=== PATIENT | male | born 1940 | race Caucasian/White ===

== ENCOUNTER 2017-07-18 10:01 | Inpatient (IN) | payer MEDICARE, OTHER ==
[2017-07-18] MEDS ORDERED: NITROGLYCERIN (SL) 0.4 MG TAB (10:33)
[2017-07-18] MEDS: NITROGLYCERIN 2% 1 GM OINT PKT TD (10:38)
[2017-07-18 10:48] LABS: ADD MAN DIFF? NO
[2017-07-18] MEDS: ALBUTEROL 0.5% (NEB) 2.5 MG/0.5 ML AMP INH (10:50)
[2017-07-18 10:51] LABS: WHITE BLOOD COUNT 7.7 10^3/ul (4.8-10.8)
[2017-07-18 10:51] LABS: BASOPHILS % 0.4 % (0.0-2.0); EOSINOPHILS # 0.1 10^3/ul (0.0-0.5); EOSINOPHILS % 0.8 % (0.0-7.0); HEMATOCRIT 34.5 % (42.0-52.0); HEMOGLOBIN 11.2 g/dl (14.0-18.0); LYMPHOCYTES # 1.4 10^3/ul (0.8-2.9); LYMPHOCYTES % 18.4 % (15.0-51.0); MEAN CORPUSCULAR HEMOGLOBIN 33.2 pg (29.0-33.0); MEAN CORPUSCULAR HGB CONC 32.5 g/dl (32.0-37.0); MEAN CORPUSCULAR VOLUME 102.4 fl (82.0-101.0); MEAN PLATELET VOLUME 9.8 fl (7.4-10.4); MONOCYTE # 0.7 10^3/ul (0.3-0.9); MONOCYTES % 8.7 % (0.0-11.0); NEUTROPHIL # 5.5 10^3/ul (1.6-7.5); PLATELET COUNT 265 10^3/UL (140-415); RED BLOOD COUNT 3.37 10^6/ul (4.70-6.10); RED CELL DISTRIBUTION WIDTH 12.9 % (11.5-14.5)
[2017-07-18 11:14] LABS: ANION GAP 26 (8-16); CALCIUM 9.1 mg/dl (8.4-10.2); CARBON DIOXIDE 19 mmol/L (21-31); CHLORIDE 104 mmol/L (97-110); GLUCOSE 148 mg/dl (70-220); SODIUM 142 mmol/L (135-144)
[2017-07-18 11:25] LABS: BLOOD UREA NITROGEN 144 mg/dl (7-20)
[2017-07-18 11:29] LABS: INR 1.18; PROTIME 15.2 Sec (11.9-14.9); PT RATIO 1.2
[2017-07-18 11:30] LABS: PARTIAL THROMBOPLASTIN TIME 38.6 Sec (25.0-35.0); POTASSIUM 6.5 mmol/L (3.5-5.1)
[2017-07-18] MEDS: INSULIN REGULAR, HUMAN 100 UNIT/1 ML 3ML VIAL IVP ×2 (12:33→16:42)
[2017-07-18] MEDS: DEXTROSE 50% 50 ML SYRINGE IV ×4 (12:37→18:33)
[2017-07-18] MEDS: ONDANSETRON 4 MG INJ IV (13:04)
[2017-07-18] MEDS: CA CHLORIDE 10% 10 ML SYRINGE IV (13:04)
[2017-07-18] MEDS: NA BICARBONATE 8.4% 50 ML SYG IV (13:09)
[2017-07-18] MEDS ORDERED: ALBUMIN HUMAN 25% 50 ML IV ×2 (15:00→18:30)
[2017-07-18] MEDS ORDERED: MANNITOL 25% 50 ML IV (15:00)
[2017-07-18] MEDS ORDERED: SODIUM CHLORIDE 0.9% 1L BAG IV (15:00)
[2017-07-18 15:27] LABS: ANION GAP 22 (8-16); CALCIUM 9.5 mg/dl (8.4-10.2); CARBON DIOXIDE 21 mmol/L (21-31); CHLORIDE 104 mmol/L (97-110); CREATININE 9.61 mg/dl (0.61-1.24); GLUCOSE 223 mg/dl (70-220); SODIUM 140 mmol/L (135-144)
[2017-07-18 15:40] LABS: BLOOD UREA NITROGEN 148 mg/dl (7-20)
[2017-07-18] MEDS ORDERED: DEXTROSE 50% 50 ML SYRINGE IV ×2 (16:00→16:30)
[2017-07-18] MEDS ORDERED: VANCOMYCIN IV PER PHARMACY XX (16:00)
[2017-07-18] MEDS: NA POLYST SULFON 15 GM/60 ML BTL PO (16:22)
[2017-07-18 16:30] LABS: ANION GAP 22 (8-16); CALCIUM 9.6 mg/dl (8.4-10.2); CARBON DIOXIDE 18 mmol/L (21-31); CHLORIDE 105 mmol/L (97-110); CREATININE 9.65 mg/dl (0.61-1.24); GLUCOSE 197 mg/dl (70-220); SODIUM 138 mmol/L (135-144)
[2017-07-18] MEDS ORDERED: GLUCOSE GEL 15 GRAM TUBE PO ×2 (16:30)
[2017-07-18] MEDS ORDERED: GLUCOSE GEL 15 GRAM TUBE BUCCAL (16:30)
[2017-07-18] MEDS ORDERED: GLUCAGON 1 MG INJ IM (16:30)
[2017-07-18 16:36] LABS: BLOOD UREA NITROGEN 154 mg/dl (7-20)
[2017-07-18 16:38] LABS: POTASSIUM 7.4 mmol/L (3.5-5.1)
[2017-07-18] MEDS: CALCIUM GLUCONATE 10% 2 GM in DEXTROSE 5% 100 ML IVPB (16:54)
[2017-07-18 17:21] LABS: ALANINE AMINOTRANSFERASE 31 IU/L (13-69); ALBUMIN 3.7 g/dl (3.3-4.9); ALKALINE PHOSPHATASE 63 IU/L (42-121); ASPARTATE AMINO TRANSFERASE 25 IU/L (15-46); MAGNESIUM 3.1 mg/dl (1.7-2.5); PHOSPHORUS 12.7 mg/dl (2.5-4.9); TOTAL PROTEIN 7.2 g/dl (6.1-8.1)
[2017-07-18 17:34] LABS: CK INDEX 7.1; CREATINE KINASE 117 IU/L (23-200)
[2017-07-18 17:35] LABS: CK-MB 8.25 ng/ml (0.0-2.4)
[2017-07-18] MEDS: INSULIN ASPART [NOVOLOG] 3 ML PEN SC ×2 (17:35→21:00)
[2017-07-18 18:24] LABS: AADO2 Arterial 63.6 mmHg (7.0-24.0); Allen Test ACCEPTAB; Arterial Base Excess -10.2 mmol/L (-3.0-3); Arterial Blood Gas Oxygen Sat 95.4 mmHG (95.0-100.0); Arterial COHb 0.5 % (0.0-3.0); Arterial Fraction of Oxyhgb 94.6 % (93.0-99.0); Arterial HCO3 19.9 mmol/L (22.0-26.0); Arterial MetHb 0.3 % (0.0-1.5); Arterial Total Hemglobin 11.9 g/dl (12.0-18.0); Arterial pCO2 64.8 mmhg (35-45); MODE NASAL CANNULA; Site Right Radial
[2017-07-18] MEDS ORDERED: ALBUMIN HUMAN 25% 100 ML IV (18:30)
[2017-07-18] MEDS: VANCOMYCIN 1.5 GM in SOD CHLORIDE 0.9% 250 ML IVPB (18:30)
[2017-07-18 19:54] LABS: HAAIG REFLEX REFLEX FILED
[2017-07-18 20:15] LABS: ANION GAP 24 (8-16); CALCIUM 10.3 mg/dl (8.4-10.2); CARBON DIOXIDE 18 mmol/L (21-31); CHLORIDE 105 mmol/L (97-110); CREATININE 9.78 mg/dl (0.61-1.24); GLUCOSE 51 mg/dl (70-220); MAGNESIUM 3.2 mg/dl (1.7-2.5); SODIUM 140 mmol/L (135-144)
[2017-07-18 20:25] LABS: BLOOD UREA NITROGEN 148 mg/dl (7-20); PHOSPHORUS 12.5 mg/dl (2.5-4.9); POTASSIUM 6.6 mmol/L (3.5-5.1)
[2017-07-18 20:45] LABS: HEPATITIS B SURFACE ANTIGEN NEGATIVE (NEGATIVE)
[2017-07-18] MEDS ORDERED: NON-FORMULARY/PATIENT OWN MED (Icosapent Ethyl (Vascepa) 2 GM) PO (21:00)
[2017-07-18] MEDS ORDERED: LANTHANUM CARBONATE 1,000 MG CHEW PO (21:00)
[2017-07-18] MEDS: DOCUSATE SODIUM 100 MG CAP PO (21:00)
[2017-07-18 21:03] LABS: HEPATITIS B CORE ANTIBODY NEGATIVE (NEGATIVE)
[2017-07-18 21:05] LABS: HEPATITIS C VIRAL ANTIBODY NEGATIVE (NEGATIVE)
[2017-07-18 21:27] LABS: AADO2 Arterial 76.5 mmHg (7.0-24.0); Arterial Base Excess -0.4 mmol/L (-3.0-3); Arterial Blood Gas Oxygen Sat 98.3 mmHG (95.0-100.0); Arterial COHb 0.2 % (0.0-3.0); Arterial Fraction of Oxyhgb 97.8 % (93.0-99.0); Arterial HCO3 25.2 mmol/L (22.0-26.0); Arterial MetHb 0.3 % (0.0-1.5); Arterial Total Hemglobin 11.6 g/dl (12.0-18.0); Arterial pCO2 45.4 mmhg (35-45); Blood Gas IEPAP 20/5; MODE MASK - BIPAP; Site Right Brachial
[2017-07-18] MEDS: TERAZOSIN 1 MG CAP PO (21:52)
[2017-07-18] MEDS: DIPYRIDAMOLE/ASPIRIN (SR) CAP PO (21:52)
[2017-07-18] MEDS: TIMOLOL 0.25% 5 ML OPH BOTH EYES (21:53)
[2017-07-18] MEDS: BRIMONIDINE 0.15% 5 ML OPH BOTH EYES (21:53)
[2017-07-18] MEDS: CEFEPIME 1GM/50 ML (PMX) 50 ML IVPB (21:53)
[2017-07-18] MEDS: LANTHANUM 500 MG CHEW PO (21:54)
[2017-07-18 23:35] LABS: CREATINE KINASE 86 IU/L (23-200)
[2017-07-18 23:48] LABS: CK INDEX 8.4
[2017-07-18 23:49] LABS: CK-MB 7.25 ng/ml (0.0-2.4)
[2017-07-18 23:53] LABS: TROPONIN-I 0.346 ng/ml (0.00-0.12)
[2017-07-19] MEDS: traMADol 50 MG TAB PO (01:16)
[2017-07-19] MEDS: ACCU-CHEK XX (02:00)
[2017-07-19] MEDS: ZOLPIDEM 5 MG TAB PO ×2 (02:06→22:26)
[2017-07-19] MEDS: ONDANSETRON 4 MG INJ IV (03:28)
[2017-07-19 06:09] LABS: ADD MAN DIFF? NO
[2017-07-19 06:36] LABS: INR 1.18; PROTIME 15.2 Sec (11.9-14.9); PT RATIO 1.2
[2017-07-19 06:37] LABS: PARTIAL THROMBOPLASTIN TIME 35.4 Sec (25.0-35.0)
[2017-07-19 06:52] LABS: ANION GAP 22 (8-16); BLOOD UREA NITROGEN 98 mg/dl (7-20); CARBON DIOXIDE 21 mmol/L (21-31); CHLORIDE 101 mmol/L (97-110); CHOL/HDL RATIO 2.2 RATIO; CHOLESTEROL 89 mg/dl (100-200); CREATININE 6.92 mg/dl (0.61-1.24); GLUCOSE 99 mg/dl (70-220); HDL CHOLESTEROL 40 mg/dl (31-75); LDL CHOLESTEROL,CALCULATED 34 mg/dl; MAGNESIUM 2.4 mg/dl (1.7-2.5); PHOSPHORUS 8.5 mg/dl (2.5-4.9); POTASSIUM 5.5 mmol/L (3.5-5.1); SODIUM 138 mmol/L (135-144); TRIGLYCERIDES 76 mg/dl (0-149)
[2017-07-19] MEDS: INSULIN ASPART [NOVOLOG] 3 ML PEN SC ×4 (07:35→20:31)
[2017-07-19 08:01] LABS: BASOPHILS % 0.5 % (0.0-2.0); EOSINOPHILS # 0.1 10^3/ul (0.0-0.5); EOSINOPHILS % 2.1 % (0.0-7.0); HEMATOCRIT 31.7 % (42.0-52.0); HEMOGLOBIN 10.3 g/dl (14.0-18.0); LYMPHOCYTES % 15.6 % (15.0-51.0); MEAN CORPUSCULAR HEMOGLOBIN 32.6 pg (29.0-33.0); MEAN CORPUSCULAR HGB CONC 32.5 g/dl (32.0-37.0); MEAN CORPUSCULAR VOLUME 100.3 fl (82.0-101.0); MEAN PLATELET VOLUME 9.6 fl (7.4-10.4); MONOCYTE # 0.7 10^3/ul (0.3-0.9); MONOCYTES % 11.3 % (0.0-11.0); NEUTROPHIL # 4.3 10^3/ul (1.6-7.5); NEUTROPHILS % 70.3 % (39.0-77.0); PLATELET COUNT 250 10^3/UL (140-415); RED BLOOD COUNT 3.16 10^6/ul (4.70-6.10); RED CELL DISTRIBUTION WIDTH 12.8 % (11.5-14.5)
[2017-07-19 08:01] LABS: WHITE BLOOD COUNT 6.2 10^3/ul (4.8-10.8)
[2017-07-19] MEDS: DOCUSATE SODIUM 100 MG CAP PO ×3 (08:09→20:29)
[2017-07-19] MEDS: BRIMONIDINE 0.15% 5 ML OPH BOTH EYES ×2 (08:50→20:28)
[2017-07-19] MEDS: TIMOLOL 0.25% 5 ML OPH BOTH EYES ×2 (08:50→20:28)
[2017-07-19 08:58] LABS: AADO2 Arterial 9.2 mmHg (7.0-24.0); Arterial Base Excess -2.9 mmol/L (-3.0-3); Arterial Blood Gas Oxygen Sat 97.6 mmHG (95.0-100.0); Arterial COHb 0.7 % (0.0-3.0); Arterial Fraction of Oxyhgb 96.6 % (93.0-99.0); Arterial HCO3 23.9 mmol/L (22.0-26.0); Arterial MetHb 0.3 % (0.0-1.5); Arterial Total Hemglobin 13.4 g/dl (12.0-18.0); Arterial pCO2 49.6 mmhg (35-45); MODE NASAL CANNULA; Site Right Brachial
[2017-07-19] MEDS: LANTHANUM 500 MG CHEW PO ×3 (09:00→20:29)
[2017-07-19] MEDS ORDERED: ALBUMIN HUMAN 25% 50 ML IV ×2 (10:00→17:30)
[2017-07-19] MEDS ORDERED: SODIUM CHLORIDE 0.9% 1L BAG IV ×2 (10:00→17:30)
[2017-07-19] MEDS: ACETAMINOPHEN 325 MG TAB PO (10:37)
[2017-07-19] MEDS: CHOLECALCIFEROL 2,000 UNIT CAP PO (12:27)
[2017-07-19] MEDS: ALLOPURINOL 100 MG TAB PO (12:27)
[2017-07-19] MEDS: FOLIC ACID 1 MG TAB PO (12:27)
[2017-07-19] MEDS: LOSARTAN 50 MG TAB PO (12:28)
[2017-07-19] MEDS: DIPYRIDAMOLE/ASPIRIN (SR) CAP PO ×2 (12:28→20:29)
[2017-07-19] MEDS: CEFEPIME 1GM/50 ML (PMX) 50 ML IVPB (14:17)
[2017-07-19] MEDS: LIDOCAINE 1% (MPF) 5 ML VIAL (17:01)
[2017-07-19] MEDS ORDERED: SOD CHLORIDE 0.9% 1,000 ML IV (17:23)
[2017-07-19] MEDS: INFLUENZA VIRUS VACCINE 0.5 ML SYG IM* (17:30)
[2017-07-19 18:34] LABS: FLD MN% 85.7 %; FLD PMN% 14.3 %; FLD RBC 58000 /uL; FLD WBC 223 /cmm
[2017-07-19 19:49] LABS: FLD CLARITY SLIGHTLY CLOUDY; FLD COLOR RED
[2017-07-19 19:49] LABS: FLD TYPE PLEURAL
[2017-07-19] MEDS: TERAZOSIN 1 MG CAP PO (20:30)
[2017-07-19] MEDS: GUAIFENESIN/CODEINE 5ML CUP PO (23:07)
[2017-07-20] MEDS: ACCU-CHEK XX (01:06)
[2017-07-20 06:04] LABS: ADD MAN DIFF? NO; BASOPHILS % 0.4 % (0.0-2.0); EOSINOPHILS # 0.1 10^3/ul (0.0-0.5); EOSINOPHILS % 0.9 % (0.0-7.0); HEMATOCRIT 29.1 % (42.0-52.0); HEMOGLOBIN 9.7 g/dl (14.0-18.0); LYMPHOCYTES % 14.7 % (15.0-51.0); MEAN CORPUSCULAR HGB CONC 33.3 g/dl (32.0-37.0); MEAN PLATELET VOLUME 9.8 fl (7.4-10.4); MONOCYTE # 0.9 10^3/ul (0.3-0.9); MONOCYTES % 12.9 % (0.0-11.0); NEUTROPHIL # 4.8 10^3/ul (1.6-7.5); NEUTROPHILS % 70.8 % (39.0-77.0); PLATELET COUNT 244 10^3/UL (140-415); RED BLOOD COUNT 2.94 10^6/ul (4.70-6.10); RED CELL DISTRIBUTION WIDTH 12.3 % (11.5-14.5)
[2017-07-20 06:04] LABS: WHITE BLOOD COUNT 6.7 10^3/ul (4.8-10.8)
[2017-07-20 06:32] LABS: VANCOMYCIN,RANDOM 5.3 ug/ml
[2017-07-20 06:49] LABS: ANION GAP 18 (8-16); BLOOD UREA NITROGEN 72 mg/dl (7-20); CALCIUM 7.9 mg/dl (8.4-10.2); CARBON DIOXIDE 29 mmol/L (21-31); CHLORIDE 96 mmol/L (97-110); CREATININE 6.14 mg/dl (0.61-1.24); GLUCOSE 151 mg/dl (70-220); POTASSIUM 4.2 mmol/L (3.5-5.1); SODIUM 139 mmol/L (135-144)
[2017-07-20] MEDS: BRIMONIDINE 0.15% 5 ML OPH BOTH EYES (08:14)
[2017-07-20] MEDS: ALLOPURINOL 100 MG TAB PO (08:14)
[2017-07-20] MEDS: FOLIC ACID 1 MG TAB PO (08:14)
[2017-07-20] MEDS: DIPYRIDAMOLE/ASPIRIN (SR) CAP PO (08:14)
[2017-07-20] MEDS: CEFEPIME 1GM/50 ML (PMX) 50 ML IVPB (08:14)
[2017-07-20] MEDS: CHOLECALCIFEROL 2,000 UNIT CAP PO (08:14)
[2017-07-20] MEDS: DOCUSATE SODIUM 100 MG CAP PO ×2 (08:14→12:24)
[2017-07-20] MEDS: LANTHANUM 500 MG CHEW PO ×2 (08:14→12:24)
[2017-07-20] MEDS: TIMOLOL 0.25% 5 ML OPH BOTH EYES (08:14)
[2017-07-20] MEDS: LOSARTAN 50 MG TAB PO (08:14)
[2017-07-20] MEDS: INSULIN ASPART [NOVOLOG] 3 ML PEN SC ×2 (08:15→12:26)
[2017-07-20] MEDS: VANCOMYCIN 1.5 GM in SOD CHLORIDE 0.9% 250 ML IVPB (14:27)
== END 2017-07-20 15:52 | disposition home or self-care (01) | DRG 280 ==
LOC: MS4 07-19 09:34 → E/R 10:01 → MS4 17:06 → ICU 15:04
PROC: 5A1D70Z Performance of Urinary Filtration, Intermittent, Less than 6 Hours Per Day (ICD-10-PCS; 2017-07-18)
PROC: 0W993ZX Drainage of Right Pleural Cavity, Percutaneous Approach, Diagnostic (ICD-10-PCS; principal; 2017-07-19)
DX: I13.2 Hypertensive heart and chronic kidney disease with heart failure and with stage 5 chronic kidney disease, or end stage renal disease (principal); I50.23 Acute on chronic systolic (congestive) heart failure; I21.A1 Myocardial infarction type 2; J96.01 Acute respiratory failure with hypoxia; J18.9 Pneumonia, unspecified organism; E87.4 Mixed disorder of acid-base balance; J90 Pleural effusion, not elsewhere classified; N18.6 End stage renal disease; E11.22 Type 2 diabetes mellitus with diabetic chronic kidney disease; N25.81 Secondary hyperparathyroidism of renal origin; R00.1 Bradycardia, unspecified; E87.5 Hyperkalemia; E87.70 Fluid overload, unspecified; H40.9 Unspecified glaucoma; I73.9 Peripheral vascular disease, unspecified; M10.9 Gout, unspecified; Z99.2 Dependence on renal dialysis; Z91.15 Patient's noncompliance with renal dialysis; Z79.02 Long term (current) use of antithrombotics/antiplatelets
CPT/HCPCS: 32555; 36415; 36600; 71045; 80048; 80061; 80076; 80202; 82550; 82553; 82803; 82962; 83036; 83735; 84100; 84132; 84484; 85025; 85610; 85730; 86704; 86709; 86803; 87040; 87070; 87081; 87102; 87116; 87340; 89051; 90686; 90935; 93005; 93306; 94644; 94660; 96365; 96366; 96367; 96375; 96376; 99291-25

== ENCOUNTER 2017-11-09 08:51 | Emergency (ER) | payer MEDICARE, OTHER ==
[2017-11-09 09:22] LABS: AADO2 Arterial 55.1 mmHg (7.0-24.0); Arterial Base Excess 2.7 mmol/L (-3.0-3); Arterial Blood Gas Oxygen Sat 87.7 mmHG (95.0-100.0); Arterial COHb 0.9 % (0.0-3.0); Arterial Fraction of Oxyhgb 86.6 % (93.0-99.0); Arterial HCO3 26.1 mmol/L (22.0-26.0); Arterial MetHb 0.3 % (0.0-1.5); Arterial Total Hemglobin 10.5 g/dl (12.0-18.0); MODE ROOM AIR; Site Right Brachial
== END 2017-11-09 10:23 | disposition home or self-care (01) ==
LOC: E/R 08:51
DX: R06.02 Shortness of breath (principal); E11.22 Type 2 diabetes mellitus with diabetic chronic kidney disease; N18.9 Chronic kidney disease, unspecified; I12.9 Hypertensive chronic kidney disease with stage 1 through stage 4 chronic kidney disease, or unspecified chronic kidney disease; Z79.82 Long term (current) use of aspirin; Z99.2 Dependence on renal dialysis
CPT/HCPCS: 36600; 82803; 99283

== ENCOUNTER 2017-11-23 10:03 | Emergency (ER) | payer MEDICARE, OTHER ==
[2017-11-23 11:36] LABS: ADD MAN DIFF? NO
[2017-11-23 11:40] LABS: BASOPHILS % 0.5 % (0.0-2.0); EOSINOPHILS # 0.1 10^3/ul (0.0-0.5); EOSINOPHILS % 1.7 % (0.0-7.0); HEMATOCRIT 31.5 % (42.0-52.0); HEMOGLOBIN 9.6 g/dl (14.0-18.0); LYMPHOCYTES % 12.4 % (15.0-51.0); MEAN CORPUSCULAR HEMOGLOBIN 30.1 pg (29.0-33.0); MEAN CORPUSCULAR HGB CONC 30.5 g/dl (32.0-37.0); MEAN CORPUSCULAR VOLUME 98.7 fl (82.0-101.0); MEAN PLATELET VOLUME 9.6 fl (7.4-10.4); MONOCYTE # 0.7 10^3/ul (0.3-0.9); MONOCYTES % 9.1 % (0.0-11.0); NEUTROPHIL # 6.1 10^3/ul (1.6-7.5); NEUTROPHILS % 75.9 % (39.0-77.0); PLATELET COUNT 251 10^3/UL (140-415); RED BLOOD COUNT 3.19 10^6/ul (4.70-6.10); RED CELL DISTRIBUTION WIDTH 15.7 % (11.5-14.5)
[2017-11-23 11:56] LABS: ALANINE AMINOTRANSFERASE 23 IU/L (13-69); ALBUMIN 3.7 g/dl (3.3-4.9); ALBUMIN/GLOBULIN RATIO 1.02; ALKALINE PHOSPHATASE 77 IU/L (42-121); ANION GAP 13 (8-16); ASPARTATE AMINO TRANSFERASE 14 IU/L (15-46); BILIRUBIN,INDIRECT 0.1 mg/dl (0-1.1); BILIRUBIN,TOTAL 0.1 mg/dl (0.2-1.3); BLOOD UREA NITROGEN 30 mg/dl (7-20); CALCIUM 8.9 mg/dl (8.4-10.2); CARBON DIOXIDE 28 mmol/L (21-31); CHLORIDE 101 mmol/L (97-110); CREATINE KINASE 26 IU/L (23-200); CREATININE 3.72 mg/dl (0.61-1.24); GLUCOSE 151 mg/dl (70-220); POTASSIUM 4.4 mmol/L (3.5-5.1); SODIUM 138 mmol/L (135-144); TOTAL PROTEIN 7.3 g/dl (6.1-8.1)
[2017-11-23 12:09] LABS: CK INDEX 3.7; TROPONIN-I 0.032 ng/ml (0.000-0.120)
[2017-11-23 12:13] LABS: CK-MB 0.97 ng/ml (0.0-2.4)
[2017-11-23 12:14] LABS: INR 1.13; PARTIAL THROMBOPLASTIN TIME 36.3 Sec (25.0-35.0); PROTIME 14.7 Sec (11.9-14.9); PT RATIO 1.1
[2017-11-23 12:17] LABS: D-DIMER 3434.33 ng/ml (<460)
[2017-11-23 12:23] LABS: B-TYPE NATRIURETIC PEPTIDE 41300 PG/ML (0-450)
[2017-11-23] MEDS: IPRATROPIUM (NEB) 0.5 MG/2.5 ML AMP NEB (13:18)
[2017-11-23] MEDS: ALBUTEROL 0.5% (NEB) 2.5 MG/0.5 ML AMP NEB (13:18)
[2017-11-23] MEDS ORDERED: ONDANSETRON 4 MG INJ IV (13:30)
[2017-11-23] MEDS ORDERED: ACETAMINOPHEN 325 MG TAB PO (13:30)
[2017-11-23] MEDS: FUROSEMIDE 40 MG INJ IV (13:51)
== END 2017-11-23 15:30 | disposition left against medical advice (07) ==
LOC: E/R 10:03
DX: J81.0 Acute pulmonary edema (principal); N18.6 End stage renal disease; I12.0 Hypertensive chronic kidney disease with stage 5 chronic kidney disease or end stage renal disease; E11.22 Type 2 diabetes mellitus with diabetic chronic kidney disease; Z79.82 Long term (current) use of aspirin; Z87.891 Personal history of nicotine dependence; Z99.2 Dependence on renal dialysis
CPT/HCPCS: 71045; 80053; 82550; 82553; 83880; 84484; 85025; 85378; 85610; 85730; 93005; 94644; 96374; 99285-25

== ENCOUNTER 2018-09-11 10:25 | Inpatient (IN) | payer MEDICARE, OTHER ==
[2018-09-11 11:19] LABS: ADD MAN DIFF? NO
[2018-09-11 11:22] LABS: BASOPHILS % 0.5 % (0.0-2.0); EOSINOPHILS # 0.1 10^3/ul (0.0-0.5); EOSINOPHILS % 2.1 % (0.0-7.0); HEMATOCRIT 35.7 % (42.0-52.0); HEMOGLOBIN 11.3 g/dl (14.0-18.0); LYMPHOCYTES % 17.3 % (15.0-51.0); MEAN CORPUSCULAR HEMOGLOBIN 32.7 pg (29.0-33.0); MEAN CORPUSCULAR HGB CONC 31.7 g/dl (32.0-37.0); MEAN CORPUSCULAR VOLUME 103.2 fl (82.0-101.0); MEAN PLATELET VOLUME 8.9 fl (7.4-10.4); MONOCYTE # 0.5 10^3/ul (0.3-0.9); MONOCYTES % 8.9 % (0.0-11.0); NEUTROPHILS % 70.8 % (39.0-77.0); PLATELET COUNT 179 10^3/UL (140-415); RED BLOOD COUNT 3.46 10^6/ul (4.70-6.10)
[2018-09-11 11:22] LABS: WHITE BLOOD COUNT 5.6 10^3/ul (4.8-10.8)
[2018-09-11] MEDS: NITROGLYCERIN 2% 1 GM OINT PKT TD (11:37)
[2018-09-11 11:42] LABS: ANION GAP 10 (5-13); BLOOD UREA NITROGEN 51 mg/dl (7-20); CALCIUM 8.8 mg/dl (8.4-10.2); CARBON DIOXIDE 32 mmol/L (21-31); CHLORIDE 93 mmol/L (97-110); CREATININE 6.72 mg/dl (0.61-1.24); GLUCOSE 154 mg/dl (70-220); POTASSIUM 4.9 mmol/L (3.5-5.1); SODIUM 135 mmol/L (135-144)
[2018-09-11 11:44] LABS: INR 1.12; PROTIME 14.5 Sec (11.9-14.9); PT RATIO 1.1
[2018-09-11 11:53] LABS: TROPONIN-I 0.016 ng/ml (0.000-0.120)
[2018-09-11] MEDS ORDERED: ONDANSETRON 4 MG INJ IV ×2 (13:30→14:00)
[2018-09-11] MEDS ORDERED: ACETAMINOPHEN 325 MG TAB PO (13:30)
[2018-09-11] MEDS ORDERED: DOCUSATE SODIUM 100 MG CAP PO (14:00)
[2018-09-11] MEDS ORDERED: NITROGLYCERIN (SL) 0.4 MG TAB SL (14:00)
[2018-09-11] MEDS ORDERED: NACL 0.9% 3 ML SYG IV (14:00)
[2018-09-11] MEDS ORDERED: MAGNESIUM HYDROXIDE 30ML CUP PO (14:00)
[2018-09-11] MEDS ORDERED: GLUCOSE GEL 15 GRAM TUBE BUCCAL (17:00)
[2018-09-11] MEDS ORDERED: DEXTROSE 50% 50 ML SYRINGE IV (17:00)
[2018-09-11] MEDS ORDERED: GLUCOSE GEL 15 GRAM TUBE PO ×2 (17:00)
[2018-09-11] MEDS ORDERED: GLUCAGON 1 MG INJ IM (17:00)
[2018-09-11] MEDS: INSULIN ASPART [NOVOLOG] 3 ML PEN SC ×2 (17:41→20:50)
[2018-09-11] MEDS: DOCUSATE SODIUM 100 MG CAP PO (20:49)
[2018-09-11] MEDS: FISH OIL 1,000 MG CAP PO (20:50)
[2018-09-11] MEDS: ATORVASTATIN 10 MG TAB PO (20:50)
[2018-09-11 20:54] LABS: HEPATITIS B SURFACE ANTIGEN NEGATIVE (NEGATIVE)
[2018-09-11] MEDS: LANTHANUM 500 MG CHEW PO (21:00)
[2018-09-11] MEDS: TERAZOSIN 1 MG CAP PO (21:00)
[2018-09-11] MEDS: DIPYRIDAMOLE/ASPIRIN (SR) CAP PO (21:00)
[2018-09-11] MEDS ORDERED: DIPYRIDAMOLE/ASPIRIN (SR) CAP PO (21:00)
[2018-09-11] MEDS ORDERED: NA BICARBONATE 650 MG TAB PO (21:00)
[2018-09-11] MEDS ORDERED: TIMOLOL 0.25% 5 ML OPH BOTH EYES (21:00)
[2018-09-11] MEDS ORDERED: TERAZOSIN 1 MG CAP PO (21:00)
[2018-09-11] MEDS: TIMOLOL 0.25% 5 ML OPH BOTH EYES (21:00)
[2018-09-11] MEDS ORDERED: LANTHANUM CARBONATE 1,000 MG CHEW PO ×2 (21:00)
[2018-09-11] MEDS ORDERED: FISH OIL 1,000 MG CAP PO (21:00)
[2018-09-11] MEDS: BRIMONIDINE 0.15% 5 ML OPH BOTH EYES (21:00)
[2018-09-11] MEDS ORDERED: BRIMONIDINE 0.15% 5 ML OPH BOTH EYES (21:00)
[2018-09-12] MEDS: ACCU-CHEK XX (02:00)
[2018-09-12 05:41] LABS: ADD MAN DIFF? NO
[2018-09-12 05:50] LABS: WHITE BLOOD COUNT 5.7 10^3/ul (4.8-10.8)
[2018-09-12 05:50] LABS: BASOPHILS % 0.5 % (0.0-2.0); EOSINOPHILS # 0.1 10^3/ul (0.0-0.5); EOSINOPHILS % 2.1 % (0.0-7.0); HEMOGLOBIN 11.8 g/dl (14.0-18.0); LYMPHOCYTES # 0.9 10^3/ul (0.8-2.9); LYMPHOCYTES % 16.2 % (15.0-51.0); MEAN CORPUSCULAR HEMOGLOBIN 32.5 pg (29.0-33.0); MEAN CORPUSCULAR HGB CONC 31.1 g/dl (32.0-37.0); MEAN CORPUSCULAR VOLUME 104.7 fl (82.0-101.0); MEAN PLATELET VOLUME 9.3 fl (7.4-10.4); MONOCYTE # 0.5 10^3/ul (0.3-0.9); MONOCYTES % 9.3 % (0.0-11.0); NEUTROPHIL # 4.1 10^3/ul (1.6-7.5); NEUTROPHILS % 71.7 % (39.0-77.0); PLATELET COUNT 190 10^3/UL (140-415); RED BLOOD COUNT 3.63 10^6/ul (4.70-6.10); RED CELL DISTRIBUTION WIDTH 16.6 % (11.5-14.5)
[2018-09-12 06:51] LABS: ANION GAP 12 (5-13); BLOOD UREA NITROGEN 36 mg/dl (7-20); CALCIUM 9.1 mg/dl (8.4-10.2); CARBON DIOXIDE 31 mmol/L (21-31); CHLORIDE 98 mmol/L (97-110); CREATININE 4.99 mg/dl (0.61-1.24); GLUCOSE 136 mg/dl (70-220); MAGNESIUM 2.3 mg/dl (1.7-2.5); POTASSIUM 4.8 mmol/L (3.5-5.1); SODIUM 141 mmol/L (135-144)
[2018-09-12] MEDS: INSULIN ASPART [NOVOLOG] 3 ML PEN SC ×4 (07:51→20:29)
[2018-09-12] MEDS: DOCUSATE SODIUM 100 MG CAP PO ×3 (08:27→20:33)
[2018-09-12] MEDS: ALLOPURINOL 100 MG TAB PO (08:27)
[2018-09-12] MEDS: FOLIC ACID 1 MG TAB PO (08:27)
[2018-09-12] MEDS: MULTIVIT/CA CARB/B CMPLX/FA TAB PO (08:27)
[2018-09-12] MEDS: FISH OIL 1,000 MG CAP PO ×2 (08:28→20:32)
[2018-09-12] MEDS: LANTHANUM 500 MG CHEW PO ×3 (08:28→20:31)
[2018-09-12] MEDS: CHOLECALCIFEROL 2,000 UNIT CAP PO (08:28)
[2018-09-12] MEDS: BRIMONIDINE 0.15% 5 ML OPH BOTH EYES ×2 (08:28→20:30)
[2018-09-12] MEDS: ASPIRIN (EC) 81 MG TAB PO (08:28)
[2018-09-12] MEDS: DIPYRIDAMOLE/ASPIRIN (SR) CAP PO ×2 (08:29→20:36)
[2018-09-12] MEDS: INSULIN GLARGINE [LANTus] (100 UNITS/ML) SYG SC (08:45)
[2018-09-12] MEDS ORDERED: INSULIN GLARGINE HUM REC ANLOG 8 UNIT SQ (09:00)
[2018-09-12] MEDS: TIMOLOL 0.25% 5 ML OPH BOTH EYES ×2 (09:00→20:31)
[2018-09-12] MEDS ORDERED: CHOLECALCIFEROL 2,000 UNIT CAP PO (09:00)
[2018-09-12] MEDS ORDERED: ALLOPURINOL 100 MG TAB PO (09:00)
[2018-09-12] MEDS ORDERED: FOLIC ACID 1 MG TAB PO (09:00)
[2018-09-12] MEDS: TERAZOSIN 1 MG CAP PO (20:32)
[2018-09-12] MEDS: ATORVASTATIN 10 MG TAB PO (20:33)
[2018-09-13] MEDS: LORAZEPAM 2 MG INJ IV (00:56)
[2018-09-13] MEDS: ACCU-CHEK XX (02:00)
[2018-09-13 05:48] LABS: ADD MAN DIFF? NO
[2018-09-13 05:52] LABS: BASOPHIL # 0.1 10^3/ul (0.0-0.1); BASOPHILS % 0.8 % (0.0-2.0); EOSINOPHILS # 0.2 10^3/ul (0.0-0.5); EOSINOPHILS % 2.9 % (0.0-7.0); HEMATOCRIT 35.2 % (42.0-52.0); HEMOGLOBIN 10.8 g/dl (14.0-18.0); LYMPHOCYTES # 1.6 10^3/ul (0.8-2.9); LYMPHOCYTES % 24.1 % (15.0-51.0); MEAN CORPUSCULAR HEMOGLOBIN 32.4 pg (29.0-33.0); MEAN CORPUSCULAR HGB CONC 30.7 g/dl (32.0-37.0); MEAN CORPUSCULAR VOLUME 105.7 fl (82.0-101.0); MEAN PLATELET VOLUME 9.3 fl (7.4-10.4); MONOCYTE # 0.7 10^3/ul (0.3-0.9); MONOCYTES % 10.3 % (0.0-11.0); NEUTROPHIL # 4.1 10^3/ul (1.6-7.5); NEUTROPHILS % 61.6 % (39.0-77.0); PLATELET COUNT 184 10^3/UL (140-415); RED BLOOD COUNT 3.33 10^6/ul (4.70-6.10); RED CELL DISTRIBUTION WIDTH 16.7 % (11.5-14.5)
[2018-09-13 05:52] LABS: WHITE BLOOD COUNT 6.6 10^3/ul (4.8-10.8)
[2018-09-13 06:29] LABS: ANION GAP 13 (5-13); BLOOD UREA NITROGEN 47 mg/dl (7-20); CALCIUM 8.9 mg/dl (8.4-10.2); CARBON DIOXIDE 27 mmol/L (21-31); CHLORIDE 100 mmol/L (97-110); CREATININE 7.37 mg/dl (0.61-1.24); GLUCOSE 98 mg/dl (70-220); POTASSIUM 5.5 mmol/L (3.5-5.1); SODIUM 140 mmol/L (135-144)
[2018-09-13] MEDS: INSULIN ASPART [NOVOLOG] 3 ML PEN SC ×4 (07:39→22:06)
[2018-09-13] MEDS: TIMOLOL 0.25% 5 ML OPH BOTH EYES ×2 (09:00→22:12)
[2018-09-13] MEDS: DOCUSATE SODIUM 100 MG CAP PO ×3 (13:00→22:06)
[2018-09-13] MEDS: LANTHANUM 500 MG CHEW PO ×3 (13:00→22:07)
[2018-09-13] MEDS: INSULIN GLARGINE [LANTus] (100 UNITS/ML) SYG SC (16:43)
[2018-09-13] MEDS: BRIMONIDINE 0.15% 5 ML OPH BOTH EYES ×2 (16:44→22:12)
[2018-09-13] MEDS: CHOLECALCIFEROL 2,000 UNIT CAP PO (16:45)
[2018-09-13] MEDS: ASPIRIN (EC) 81 MG TAB PO (16:45)
[2018-09-13] MEDS: FISH OIL 1,000 MG CAP PO ×2 (16:45→22:07)
[2018-09-13] MEDS: DIPYRIDAMOLE/ASPIRIN (SR) CAP PO ×2 (16:46→22:07)
[2018-09-13] MEDS: ALLOPURINOL 100 MG TAB PO (16:46)
[2018-09-13] MEDS: FOLIC ACID 1 MG TAB PO (16:46)
[2018-09-13] MEDS: MULTIVIT/CA CARB/B CMPLX/FA TAB PO (16:46)
[2018-09-13] MEDS: ATORVASTATIN 10 MG TAB PO (22:07)
[2018-09-13] MEDS: TERAZOSIN 1 MG CAP PO (22:07)
[2018-09-13] MEDS: ZOLPIDEM 5 MG TAB PO (22:35)
[2018-09-14] MEDS: ACCU-CHEK XX (02:00)
[2018-09-14 06:10] LABS: ADD MAN DIFF? NO
[2018-09-14 06:14] LABS: BASOPHILS % 0.4 % (0.0-2.0); EOSINOPHILS # 0.2 10^3/ul (0.0-0.5); EOSINOPHILS % 3.3 % (0.0-7.0); HEMATOCRIT 36.5 % (42.0-52.0); LYMPHOCYTES # 1.6 10^3/ul (0.8-2.9); LYMPHOCYTES % 21.5 % (15.0-51.0); MEAN CORPUSCULAR HEMOGLOBIN 32.3 pg (29.0-33.0); MEAN CORPUSCULAR HGB CONC 30.1 g/dl (32.0-37.0); MEAN PLATELET VOLUME 9.3 fl (7.4-10.4); MONOCYTE # 0.7 10^3/ul (0.3-0.9); MONOCYTES % 10.1 % (0.0-11.0); NEUTROPHIL # 4.6 10^3/ul (1.6-7.5); NEUTROPHILS % 64.4 % (39.0-77.0); PLATELET COUNT 179 10^3/UL (140-415); RED BLOOD COUNT 3.41 10^6/ul (4.70-6.10); RED CELL DISTRIBUTION WIDTH 16.8 % (11.5-14.5)
[2018-09-14 06:14] LABS: WHITE BLOOD COUNT 7.2 10^3/ul (4.8-10.8)
[2018-09-14 06:45] LABS: ANION GAP 11 (5-13); BLOOD UREA NITROGEN 58 mg/dl (7-20); CALCIUM 8.6 mg/dl (8.4-10.2); CARBON DIOXIDE 28 mmol/L (21-31); CHLORIDE 101 mmol/L (97-110); CREATININE 5.81 mg/dl (0.61-1.24); GLUCOSE 127 mg/dl (70-220); POTASSIUM 5.7 mmol/L (3.5-5.1); SODIUM 140 mmol/L (135-144)
[2018-09-14] MEDS: INSULIN GLARGINE [LANTus] (100 UNITS/ML) SYG SC (07:36)
[2018-09-14] MEDS: INSULIN ASPART [NOVOLOG] 3 ML PEN SC ×4 (07:36→20:54)
[2018-09-14] MEDS: TIMOLOL 0.25% 5 ML OPH BOTH EYES ×2 (09:04→20:53)
[2018-09-14] MEDS: BRIMONIDINE 0.15% 5 ML OPH BOTH EYES ×2 (09:04→20:53)
[2018-09-14] MEDS: LANTHANUM 500 MG CHEW PO ×3 (09:06→20:54)
[2018-09-14] MEDS: FISH OIL 1,000 MG CAP PO ×2 (09:06→20:54)
[2018-09-14] MEDS: DIPYRIDAMOLE/ASPIRIN (SR) CAP PO ×2 (09:06→20:54)
[2018-09-14] MEDS: ASPIRIN (EC) 81 MG TAB PO (09:07)
[2018-09-14] MEDS: DOCUSATE SODIUM 100 MG CAP PO ×3 (09:07→20:54)
[2018-09-14] MEDS: MULTIVIT/CA CARB/B CMPLX/FA TAB PO (09:07)
[2018-09-14] MEDS: ALLOPURINOL 100 MG TAB PO (09:07)
[2018-09-14] MEDS: FOLIC ACID 1 MG TAB PO (09:07)
[2018-09-14] MEDS: CHOLECALCIFEROL 2,000 UNIT CAP PO (09:07)
[2018-09-14] MEDS: LORAZEPAM 2 MG INJ IV (09:21)
[2018-09-14] MEDS: NA POLYST SULFON 15 GM/60 ML BTL PO (11:06)
[2018-09-14] MEDS: TERAZOSIN 1 MG CAP PO (20:54)
[2018-09-14] MEDS: ATORVASTATIN 10 MG TAB PO (20:54)
[2018-09-15] MEDS: ACCU-CHEK XX (02:00)
[2018-09-15 06:22] LABS: ADD MAN DIFF? NO
[2018-09-15 06:28] LABS: BASOPHILS % 0.3 % (0.0-2.0); EOSINOPHILS # 0.1 10^3/ul (0.0-0.5); EOSINOPHILS % 0.7 % (0.0-7.0); HEMATOCRIT 35.1 % (42.0-52.0); HEMOGLOBIN 10.6 g/dl (14.0-18.0); LYMPHOCYTES # 1.7 10^3/ul (0.8-2.9); LYMPHOCYTES % 15.8 % (15.0-51.0); MEAN CORPUSCULAR HEMOGLOBIN 32.3 pg (29.0-33.0); MEAN CORPUSCULAR HGB CONC 30.2 g/dl (32.0-37.0); MEAN PLATELET VOLUME 9.2 fl (7.4-10.4); MONOCYTE # 0.6 10^3/ul (0.3-0.9); NEUTROPHIL # 8.2 10^3/ul (1.6-7.5); NEUTROPHILS % 76.7 % (39.0-77.0); PLATELET COUNT 167 10^3/UL (140-415); RED BLOOD COUNT 3.28 10^6/ul (4.70-6.10); RED CELL DISTRIBUTION WIDTH 16.4 % (11.5-14.5)
[2018-09-15 06:28] LABS: WHITE BLOOD COUNT 10.7 10^3/ul (4.8-10.8)
[2018-09-15 07:17] LABS: ANION GAP 16 (5-13); BLOOD UREA NITROGEN 77 mg/dl (7-20); CALCIUM 8.4 mg/dl (8.4-10.2); CARBON DIOXIDE 25 mmol/L (21-31); CHLORIDE 98 mmol/L (97-110); CREATININE 7.87 mg/dl (0.61-1.24); GLUCOSE 103 mg/dl (70-220); SODIUM 139 mmol/L (135-144)
[2018-09-15] MEDS: INSULIN ASPART [NOVOLOG] 3 ML PEN SC ×4 (07:27→22:11)
[2018-09-15] MEDS: ALBUMIN HUMAN 25% 100 ML IV (08:40)
[2018-09-15] MEDS: INSULIN GLARGINE [LANTus] (100 UNITS/ML) SYG SC (11:20)
[2018-09-15 14:18] LABS: AADO2 Arterial 82.4 mmHg (7.0-24.0); Allen Test ACCEPTAB; Arterial Base Excess -1.2 mmol/L (-3.0-3); Arterial Blood Gas Oxygen Sat 95.8 mmHG (95.0-100.0); Arterial Fraction of Oxyhgb 94.7 % (93.0-99.0); Arterial HCO3 29.8 mmol/L (22.0-26.0); Arterial MetHb 0.1 % (0.0-1.5); Arterial pCO2 88.4 mmhg (35-45); MODE NASAL CANNULA; Site Right Radial
[2018-09-15 14:24] LABS: ADD MAN DIFF? NO
[2018-09-15 14:26] LABS: WHITE BLOOD COUNT 9.9 10^3/ul (4.8-10.8)
[2018-09-15 14:26] LABS: BASOPHILS % 0.4 % (0.0-2.0); EOSINOPHILS # 0.2 10^3/ul (0.0-0.5); EOSINOPHILS % 1.5 % (0.0-7.0); HEMOGLOBIN 11.3 g/dl (14.0-18.0); LYMPHOCYTES # 1.2 10^3/ul (0.8-2.9); LYMPHOCYTES % 12.2 % (15.0-51.0); MEAN CORPUSCULAR HEMOGLOBIN 32.9 pg (29.0-33.0); MEAN CORPUSCULAR HGB CONC 30.5 g/dl (32.0-37.0); MEAN CORPUSCULAR VOLUME 107.9 fl (82.0-101.0); MEAN PLATELET VOLUME 9.4 fl (7.4-10.4); MONOCYTE # 0.7 10^3/ul (0.3-0.9); NEUTROPHIL # 7.8 10^3/ul (1.6-7.5); NEUTROPHILS % 78.3 % (39.0-77.0); PLATELET COUNT 169 10^3/UL (140-415); RED BLOOD COUNT 3.43 10^6/ul (4.70-6.10); RED CELL DISTRIBUTION WIDTH 16.3 % (11.5-14.5)
[2018-09-15] MEDS: LANTHANUM 500 MG CHEW PO ×3 (14:30→21:00)
[2018-09-15] MEDS: DIPYRIDAMOLE/ASPIRIN (SR) CAP PO ×2 (14:30→21:00)
[2018-09-15] MEDS: FISH OIL 1,000 MG CAP PO ×2 (14:30→21:00)
[2018-09-15] MEDS: DOCUSATE SODIUM 100 MG CAP PO ×3 (14:30→21:00)
[2018-09-15] MEDS: MULTIVIT/CA CARB/B CMPLX/FA TAB PO (14:30)
[2018-09-15] MEDS: ALLOPURINOL 100 MG TAB PO (14:30)
[2018-09-15] MEDS: FOLIC ACID 1 MG TAB PO (14:30)
[2018-09-15] MEDS: ASPIRIN (EC) 81 MG TAB PO (14:30)
[2018-09-15] MEDS: TIMOLOL 0.25% 5 ML OPH BOTH EYES ×2 (14:30→22:13)
[2018-09-15] MEDS: LOSARTAN 50 MG TAB PO (14:30)
[2018-09-15] MEDS: CHOLECALCIFEROL 2,000 UNIT CAP PO (14:30)
[2018-09-15] MEDS ORDERED: NON-FORMULARY/PATIENT OWN MED (Olmesartan Medoxomil (Benicar) 40 MG) PO (14:30)
[2018-09-15] MEDS: BRIMONIDINE 0.15% 5 ML OPH BOTH EYES ×2 (14:39→22:13)
[2018-09-15 14:45] LABS: LACTIC ACID 0.6 mmol/L (0.5-2.0)
[2018-09-15 15:22] LABS: TROPONIN-I 0.068 ng/ml (0.000-0.120)
[2018-09-15 17:15] LABS: ANION GAP 13 (5-13); CALCIUM 8.7 mg/dl (8.4-10.2); CARBON DIOXIDE 26 mmol/L (21-31); CHLORIDE 102 mmol/L (97-110); GLUCOSE 166 mg/dl (70-220); POTASSIUM 4.3 mmol/L (3.5-5.1); SODIUM 141 mmol/L (135-144)
[2018-09-15 17:21] LABS: BLOOD UREA NITROGEN 34 mg/dl (7-20); CREATININE 3.87 mg/dl (0.61-1.24)
[2018-09-15 18:32] LABS: AADO2 Arterial 55.2 mmHg (7.0-24.0); Allen Test ACCEPTAB; Arterial Base Excess -0.5 mmol/L (-3.0-3); Arterial Blood Gas Oxygen Sat 81.4 mmHG (95.0-100.0); Arterial COHb 0.8 % (0.0-3.0); Arterial Fraction of Oxyhgb 80.5 % (93.0-99.0); Arterial HCO3 29.9 mmol/L (22.0-26.0); Arterial MetHb 0.3 % (0.0-1.5); Arterial pCO2 83.2 mmhg (35-45); MODE NASAL CANNULA; Site Right Radial
[2018-09-15] MEDS: hydrALAzine 20 MG INJ IV (20:06)
[2018-09-15] MEDS: TERAZOSIN 1 MG CAP PO (21:00)
[2018-09-15] MEDS: ATORVASTATIN 10 MG TAB PO (21:00)
[2018-09-15 21:02] LABS: AADO2 Arterial 546.4 mmHg (7.0-24.0); Arterial Base Excess -1.4 mmol/L (-3.0-3); Arterial Blood Gas Oxygen Sat 97.2 mmHG (95.0-100.0); Arterial COHb 0.7 % (0.0-3.0); Arterial Fraction of Oxyhgb 96.2 % (93.0-99.0); Arterial HCO3 27.5 mmol/L (22.0-26.0); Arterial MetHb 0.3 % (0.0-1.5); Arterial pCO2 67.9 mmhg (35-45); MODE HFNC; Site Right Radial
[2018-09-16 01:16] LABS: AADO2 Arterial 439.2 mmHg (7.0-24.0); Arterial Base Excess -0.2 mmol/L (-3.0-3); Arterial COHb 0.3 % (0.0-3.0); Arterial Fraction of Oxyhgb 98.6 % (93.0-99.0); Arterial HCO3 28.4 mmol/L (22.0-26.0); Arterial MetHb 0.1 % (0.0-1.5); Arterial pCO2 67.9 mmhg (35-45); MODE HFNC; Site Right Brachial
[2018-09-16] MEDS: ACCU-CHEK XX (01:29)
[2018-09-16] MEDS: LORAZEPAM 2 MG INJ IV (01:48)
[2018-09-16 04:46] LABS: ADD MAN DIFF? NO
[2018-09-16 04:48] LABS: BASOPHILS % 0.3 % (0.0-2.0); HEMOGLOBIN 10.7 g/dl (14.0-18.0); LYMPHOCYTES # 1.3 10^3/ul (0.8-2.9); MEAN CORPUSCULAR HEMOGLOBIN 32.6 pg (29.0-33.0); MEAN CORPUSCULAR HGB CONC 30.6 g/dl (32.0-37.0); MEAN CORPUSCULAR VOLUME 106.7 fl (82.0-101.0); MEAN PLATELET VOLUME 9.2 fl (7.4-10.4); MONOCYTE # 0.6 10^3/ul (0.3-0.9); NEUTROPHIL # 6.8 10^3/ul (1.6-7.5); NEUTROPHILS % 77.4 % (39.0-77.0); PLATELET COUNT 173 10^3/UL (140-415); RED BLOOD COUNT 3.28 10^6/ul (4.70-6.10); RED CELL DISTRIBUTION WIDTH 16.2 % (11.5-14.5)
[2018-09-16 04:48] LABS: WHITE BLOOD COUNT 8.8 10^3/ul (4.8-10.8)
[2018-09-16 05:10] LABS: ANION GAP 17 (5-13); BLOOD UREA NITROGEN 56 mg/dl (7-20); CALCIUM 8.9 mg/dl (8.4-10.2); CARBON DIOXIDE 26 mmol/L (21-31); CHLORIDE 98 mmol/L (97-110); CREATININE 5.74 mg/dl (0.61-1.24); GLUCOSE 81 mg/dl (70-220); POTASSIUM 4.7 mmol/L (3.5-5.1); SODIUM 141 mmol/L (135-144)
[2018-09-16] MEDS: INSULIN ASPART [NOVOLOG] 3 ML PEN SC ×4 (07:35→20:52)
[2018-09-16] MEDS: ASPIRIN (EC) 81 MG TAB PO (09:00)
[2018-09-16] MEDS: LOSARTAN 50 MG TAB PO (09:00)
[2018-09-16] MEDS: DOCUSATE SODIUM 100 MG CAP PO ×3 (09:00→20:37)
[2018-09-16] MEDS: CHOLECALCIFEROL 2,000 UNIT CAP PO (09:00)
[2018-09-16] MEDS: FOLIC ACID 1 MG TAB PO (09:00)
[2018-09-16] MEDS: LANTHANUM 500 MG CHEW PO ×3 (09:00→20:38)
[2018-09-16] MEDS: FISH OIL 1,000 MG CAP PO ×2 (09:00→20:37)
[2018-09-16] MEDS: DIPYRIDAMOLE/ASPIRIN (SR) CAP PO ×2 (09:00→20:37)
[2018-09-16] MEDS: ALLOPURINOL 100 MG TAB PO (09:00)
[2018-09-16] MEDS: MULTIVIT/CA CARB/B CMPLX/FA TAB PO (09:00)
[2018-09-16] MEDS: BRIMONIDINE 0.15% 5 ML OPH BOTH EYES ×2 (10:10→20:48)
[2018-09-16] MEDS: TIMOLOL 0.25% 5 ML OPH BOTH EYES ×2 (10:11→20:49)
[2018-09-16] MEDS: INSULIN GLARGINE [LANTus] (100 UNITS/ML) SYG SC (10:12)
[2018-09-16] MEDS: ATORVASTATIN 10 MG TAB PO (20:38)
[2018-09-16] MEDS: TERAZOSIN 1 MG CAP PO (20:38)
[2018-09-17] MEDS: ACCU-CHEK XX (02:30)
[2018-09-17] MEDS: DEXTROSE 50% 50 ML SYRINGE IV ×2 (02:46→08:08)
[2018-09-17 04:41] LABS: ADD MAN DIFF? NO; BASOPHIL # 0.1 10^3/ul (0.0-0.1); BASOPHILS % 0.6 % (0.0-2.0); EOSINOPHILS # 0.1 10^3/ul (0.0-0.5); EOSINOPHILS % 0.8 % (0.0-7.0); HEMATOCRIT 37.2 % (42.0-52.0); HEMOGLOBIN 11.5 g/dl (14.0-18.0); LYMPHOCYTES # 1.2 10^3/ul (0.8-2.9); MEAN CORPUSCULAR HGB CONC 30.9 g/dl (32.0-37.0); MEAN CORPUSCULAR VOLUME 106.6 fl (82.0-101.0); MEAN PLATELET VOLUME 9.4 fl (7.4-10.4); MONOCYTE # 0.8 10^3/ul (0.3-0.9); MONOCYTES % 9.4 % (0.0-11.0); NEUTROPHIL # 6.4 10^3/ul (1.6-7.5); NEUTROPHILS % 74.8 % (39.0-77.0); PLATELET COUNT 189 10^3/UL (140-415); RED BLOOD COUNT 3.49 10^6/ul (4.70-6.10); RED CELL DISTRIBUTION WIDTH 16.1 % (11.5-14.5)
[2018-09-17 04:41] LABS: WHITE BLOOD COUNT 8.5 10^3/ul (4.8-10.8)
[2018-09-17 05:12] LABS: URIC ACID 4.7 mg/dl (3.1-7.9)
[2018-09-17 05:13] LABS: ANION GAP 19 (5-13); BLOOD UREA NITROGEN 78 mg/dl (7-20); CALCIUM 8.8 mg/dl (8.4-10.2); CARBON DIOXIDE 25 mmol/L (21-31); CHLORIDE 95 mmol/L (97-110); CREATININE 8.04 mg/dl (0.61-1.24); GLUCOSE 94 mg/dl (70-220); POTASSIUM 4.9 mmol/L (3.5-5.1); SODIUM 139 mmol/L (135-144)
[2018-09-17 05:15] LABS: MAGNESIUM 2.3 mg/dl (1.7-2.5)
[2018-09-17] MEDS: INSULIN ASPART [NOVOLOG] 3 ML PEN SC ×4 (07:35→20:37)
[2018-09-17 08:42] LABS: AADO2 Arterial 292.1 mmHg (7.0-24.0); Arterial Base Excess -5.2 mmol/L (-3.0-3); Arterial Blood Gas Oxygen Sat 99.4 mmHG (95.0-100.0); Arterial COHb 0.5 % (0.0-3.0); Arterial Fraction of Oxyhgb 98.9 % (93.0-99.0); Arterial HCO3 24.8 mmol/L (22.0-26.0); Arterial MetHb 0 % (0.0-1.5); Arterial pCO2 73.7 mmhg (35-45); MODE HFNC; Site Right Brachial
[2018-09-17] MEDS: INSULIN GLARGINE [LANTus] (100 UNITS/ML) SYG SC (09:00)
[2018-09-17] MEDS: MULTIVIT/CA CARB/B CMPLX/FA TAB PO (09:20)
[2018-09-17] MEDS: CHOLECALCIFEROL 2,000 UNIT CAP PO (09:20)
[2018-09-17] MEDS: FISH OIL 1,000 MG CAP PO ×2 (09:22→20:23)
[2018-09-17] MEDS: LANTHANUM 500 MG CHEW PO ×3 (09:22→20:24)
[2018-09-17] MEDS: LOSARTAN 50 MG TAB PO (09:22)
[2018-09-17] MEDS: DIPYRIDAMOLE/ASPIRIN (SR) CAP PO ×2 (09:22→20:24)
[2018-09-17] MEDS: ASPIRIN (EC) 81 MG TAB PO (09:22)
[2018-09-17] MEDS: FOLIC ACID 1 MG TAB PO (09:23)
[2018-09-17] MEDS: ALLOPURINOL 100 MG TAB PO (09:23)
[2018-09-17] MEDS: DOCUSATE SODIUM 100 MG CAP PO ×3 (09:23→20:23)
[2018-09-17] MEDS: BRIMONIDINE 0.15% 5 ML OPH BOTH EYES ×2 (09:32→20:25)
[2018-09-17] MEDS: TIMOLOL 0.25% 5 ML OPH BOTH EYES ×3 (09:33→21:34)
[2018-09-17] MEDS: HYDROCODONE/APAP (5/325) TAB PO (13:19)
[2018-09-17] MEDS: ACETAMINOPHEN 325 MG TAB PO ×2 (15:54→21:58)
[2018-09-17] MEDS: ATORVASTATIN 10 MG TAB PO (20:24)
[2018-09-17] MEDS: TERAZOSIN 1 MG CAP PO (20:26)
[2018-09-17] MEDS: LORAZEPAM 2 MG INJ IV (21:56)
[2018-09-18] MEDS: ACCU-CHEK XX (01:12)
[2018-09-18] MEDS: NORepinephrine 8MG/250 ML (PMX 250 ML IV ×2 (04:58→22:22)
[2018-09-18] MEDS ORDERED: LIDOCAINE 1% (MDV) 20 ML INJ INJ (05:08)
[2018-09-18 05:26] LABS: ADD MAN DIFF? NO
[2018-09-18 05:27] LABS: BASOPHILS % 0.4 % (0.0-2.0); EOSINOPHILS # 0.1 10^3/ul (0.0-0.5); EOSINOPHILS % 1.9 % (0.0-7.0); HEMOGLOBIN 10.8 g/dl (14.0-18.0); LYMPHOCYTES % 13.2 % (15.0-51.0); MEAN CORPUSCULAR HEMOGLOBIN 32.9 pg (29.0-33.0); MEAN CORPUSCULAR HGB CONC 31.8 g/dl (32.0-37.0); MEAN CORPUSCULAR VOLUME 103.7 fl (82.0-101.0); MEAN PLATELET VOLUME 9.9 fl (7.4-10.4); MONOCYTE # 0.9 10^3/ul (0.3-0.9); MONOCYTES % 11.9 % (0.0-11.0); NEUTROPHIL # 5.4 10^3/ul (1.6-7.5); NEUTROPHILS % 71.9 % (39.0-77.0); PLATELET COUNT 176 10^3/UL (140-415); RED BLOOD COUNT 3.28 10^6/ul (4.70-6.10); RED CELL DISTRIBUTION WIDTH 15.6 % (11.5-14.5)
[2018-09-18 05:27] LABS: WHITE BLOOD COUNT 7.5 10^3/ul (4.8-10.8)
[2018-09-18 05:44] LABS: ANION GAP 18 (5-13); BLOOD UREA NITROGEN 100 mg/dl (7-20); CALCIUM 8.1 mg/dl (8.4-10.2); CARBON DIOXIDE 22 mmol/L (21-31); CHLORIDE 94 mmol/L (97-110); CREATININE 9.29 mg/dl (0.61-1.24); GLUCOSE 137 mg/dl (70-220); POTASSIUM 4.8 mmol/L (3.5-5.1); SODIUM 134 mmol/L (135-144)
[2018-09-18 06:23] LABS: PHOSPHORUS 10.7 mg/dl (2.5-4.9)
[2018-09-18 06:23] LABS: MAGNESIUM 2.3 mg/dl (1.7-2.5)
[2018-09-18] MEDS: LORAZEPAM 2 MG INJ IV (06:36)
[2018-09-18] MEDS: INSULIN ASPART [NOVOLOG] 3 ML PEN SC ×4 (07:35→20:34)
[2018-09-18 08:24] LABS: AADO2 Arterial 347.9 mmHg (7.0-24.0); Arterial Base Excess -9.2 mmol/L (-3.0-3); Arterial Blood Gas Oxygen Sat 96.1 mmHG (95.0-100.0); Arterial COHb 0.4 % (0.0-3.0); Arterial Fraction of Oxyhgb 95.4 % (93.0-99.0); Arterial MetHb 0.3 % (0.0-1.5); Arterial pCO2 50.9 mmhg (35-45); MODE HFNC; Site Right Brachial
[2018-09-18] MEDS: CHOLECALCIFEROL 2,000 UNIT CAP PO (08:40)
[2018-09-18] MEDS: FISH OIL 1,000 MG CAP PO ×2 (08:40→20:14)
[2018-09-18] MEDS: TIMOLOL 0.25% 5 ML OPH BOTH EYES ×2 (08:41→20:35)
[2018-09-18] MEDS: DIPYRIDAMOLE/ASPIRIN (SR) CAP PO ×2 (08:41→20:14)
[2018-09-18] MEDS: DOCUSATE SODIUM 100 MG CAP PO ×3 (08:41→20:14)
[2018-09-18] MEDS: BRIMONIDINE 0.15% 5 ML OPH BOTH EYES ×2 (08:42→20:35)
[2018-09-18] MEDS: FOLIC ACID 1 MG TAB PO (09:01)
[2018-09-18] MEDS: ASPIRIN (EC) 81 MG TAB PO (09:01)
[2018-09-18] MEDS: MULTIVIT/CA CARB/B CMPLX/FA TAB PO (09:01)
[2018-09-18] MEDS: LANTHANUM 500 MG CHEW PO ×3 (09:02→20:14)
[2018-09-18] MEDS: INSULIN GLARGINE [LANTus] (100 UNITS/ML) SYG SC (09:02)
[2018-09-18] MEDS: morphine 2 MG INJ IV (10:17)
[2018-09-18] MEDS: HALOPERIDOL 5 MG INJ IV (10:18)
[2018-09-18] MEDS: ALBUMIN HUMAN 25% 100 ML IV (12:00)
[2018-09-18 16:05] LABS: AADO2 Arterial 371.9 mmHg (7.0-24.0); Allen Test ACCEPTAB; Arterial Base Excess -8.4 mmol/L (-3.0-3); Arterial Blood Gas Oxygen Sat 94.8 mmHG (95.0-100.0); Arterial COHb 0.4 % (0.0-3.0); Arterial Fraction of Oxyhgb 94.1 % (93.0-99.0); Arterial HCO3 18.7 mmol/L (22.0-26.0); Arterial MetHb 0.3 % (0.0-1.5); Arterial pCO2 44.5 mmhg (35-45); MODE HFNC; Site Right Radial
[2018-09-18] MEDS: LIDOCAINE 2% (MDV) 20 ML INJ INJ (18:47)
[2018-09-18] MEDS: LIDOCAINE 1% (MPF) 5 ML VIAL (18:47)
[2018-09-18 19:53] LABS: AADO2 Arterial 352.2 mmHg (7.0-24.0); Arterial Base Excess 3.4 mmol/L (-3.0-3); Arterial Blood Gas Oxygen Sat 96.4 mmHG (95.0-100.0); Arterial COHb 0.2 % (0.0-3.0); Arterial Fraction of Oxyhgb 95.9 % (93.0-99.0); Arterial HCO3 30.1 mmol/L (22.0-26.0); Arterial MetHb 0.3 % (0.0-1.5); Arterial pCO2 55.1 mmhg (35-45); MODE HFNC; Site Right Radial
[2018-09-18] MEDS: TERAZOSIN 1 MG CAP PO (20:14)
[2018-09-18] MEDS: ATORVASTATIN 10 MG TAB PO (20:15)
[2018-09-18 23:37] LABS: Allen Test ACCEPTAB; Arterial Base Excess 1.3 mmol/L (-3.0-3); Arterial Blood Gas Oxygen Sat 96.6 mmHG (95.0-100.0); Arterial COHb 0.3 % (0.0-3.0); Arterial MetHb 0.3 % (0.0-1.5); Arterial pCO2 52.6 mmhg (35-45); MODE VAPO-THERM; Site Right Radial
[2018-09-19] MEDS: HALOPERIDOL 5 MG INJ IV ×3 (01:28→21:40)
[2018-09-19] MEDS: ACCU-CHEK XX (02:00)
[2018-09-19] MEDS: ACETYLCYSTEINE 20% 4 ML VIAL NEB ×4 (02:30→20:08)
[2018-09-19] MEDS: ALBUTEROL/IPRATROPIUM (NEB) 3 ML AMP HHN ×4 (02:30→20:08)
[2018-09-19] MEDS: HALOPERIDOL 5 MG INJ IM (04:53)
[2018-09-19 05:18] LABS: ADD MAN DIFF? NO
[2018-09-19 05:24] LABS: BASOPHILS % 0.4 % (0.0-2.0); EOSINOPHILS % 0.3 % (0.0-7.0); HEMATOCRIT 33.5 % (42.0-52.0); LYMPHOCYTES # 1.1 10^3/ul (0.8-2.9); LYMPHOCYTES % 13.8 % (15.0-51.0); MEAN CORPUSCULAR HEMOGLOBIN 32.7 pg (29.0-33.0); MEAN CORPUSCULAR HGB CONC 32.8 g/dl (32.0-37.0); MEAN CORPUSCULAR VOLUME 99.7 fl (82.0-101.0); MEAN PLATELET VOLUME 9.9 fl (7.4-10.4); MONOCYTES % 12.4 % (0.0-11.0); NEUTROPHIL # 5.6 10^3/ul (1.6-7.5); NEUTROPHILS % 72.4 % (39.0-77.0); PLATELET COUNT 178 10^3/UL (140-415); RED BLOOD COUNT 3.36 10^6/ul (4.70-6.10); RED CELL DISTRIBUTION WIDTH 15.6 % (11.5-14.5)
[2018-09-19 05:24] LABS: WHITE BLOOD COUNT 7.7 10^3/ul (4.8-10.8)
[2018-09-19 06:03] LABS: ANION GAP 18 (5-13); BLOOD UREA NITROGEN 57 mg/dl (7-20); CALCIUM 8.4 mg/dl (8.4-10.2); CARBON DIOXIDE 26 mmol/L (21-31); CHLORIDE 93 mmol/L (97-110); CREATININE 6.41 mg/dl (0.61-1.24); GLUCOSE 64 mg/dl (70-220); POTASSIUM 4.4 mmol/L (3.5-5.1); SODIUM 137 mmol/L (135-144)
[2018-09-19] MEDS: DEXTROSE 50% 50 ML SYRINGE IV ×2 (06:44→18:41)
[2018-09-19] MEDS: INSULIN ASPART [NOVOLOG] 3 ML PEN SC ×4 (07:35→21:00)
[2018-09-19] MEDS: QUETIAPINE 25 MG TAB PO ×4 (08:00→16:12)
[2018-09-19] MEDS: DOCUSATE SODIUM 100 MG CAP PO ×3 (08:04→20:02)
[2018-09-19] MEDS: FISH OIL 1,000 MG CAP PO ×2 (08:04→20:03)
[2018-09-19] MEDS: FOLIC ACID 1 MG TAB PO (08:04)
[2018-09-19] MEDS: DIPYRIDAMOLE/ASPIRIN (SR) CAP PO ×2 (08:04→20:02)
[2018-09-19] MEDS: MULTIVIT/CA CARB/B CMPLX/FA TAB PO (08:05)
[2018-09-19] MEDS: CHOLECALCIFEROL 2,000 UNIT CAP PO (08:05)
[2018-09-19] MEDS: LANTHANUM 500 MG CHEW PO ×3 (09:00→20:03)
[2018-09-19] MEDS: BRIMONIDINE 0.15% 5 ML OPH BOTH EYES ×2 (09:42→21:37)
[2018-09-19] MEDS: TIMOLOL 0.25% 5 ML OPH BOTH EYES ×2 (09:42→21:40)
[2018-09-19] MEDS: INSULIN GLARGINE [LANTus] (100 UNITS/ML) SYG SC (10:04)
[2018-09-19] MEDS: TERAZOSIN 1 MG CAP PO (20:03)
[2018-09-19] MEDS: ATORVASTATIN 10 MG TAB PO (20:05)
[2018-09-20] MEDS: ACETYLCYSTEINE 20% 4 ML VIAL NEB ×4 (01:51→20:10)
[2018-09-20] MEDS: ALBUTEROL/IPRATROPIUM (NEB) 3 ML AMP HHN ×4 (01:51→20:10)
[2018-09-20] MEDS: ACCU-CHEK XX (01:58)
[2018-09-20 05:26] LABS: ADD MAN DIFF? NO
[2018-09-20 05:57] LABS: WHITE BLOOD COUNT 7.3 10^3/ul (4.8-10.8)
[2018-09-20 05:57] LABS: BASOPHIL # 0.1 10^3/ul (0.0-0.1); BASOPHILS % 0.7 % (0.0-2.0); EOSINOPHILS # 0.1 10^3/ul (0.0-0.5); HEMATOCRIT 31.4 % (42.0-52.0); HEMOGLOBIN 10.3 g/dl (14.0-18.0); LYMPHOCYTES # 1.3 10^3/ul (0.8-2.9); LYMPHOCYTES % 17.8 % (15.0-51.0); MEAN CORPUSCULAR HGB CONC 32.8 g/dl (32.0-37.0); MEAN CORPUSCULAR VOLUME 100.6 fl (82.0-101.0); MEAN PLATELET VOLUME 10.3 fl (7.4-10.4); MONOCYTE # 0.9 10^3/ul (0.3-0.9); MONOCYTES % 12.1 % (0.0-11.0); NEUTROPHILS % 68.1 % (39.0-77.0); PLATELET COUNT 194 10^3/UL (140-415); RED BLOOD COUNT 3.12 10^6/ul (4.70-6.10); RED CELL DISTRIBUTION WIDTH 15.6 % (11.5-14.5)
[2018-09-20 06:32] LABS: ANION GAP 15 (5-13); BLOOD UREA NITROGEN 77 mg/dl (7-20); CALCIUM 8.2 mg/dl (8.4-10.2); CARBON DIOXIDE 28 mmol/L (21-31); CHLORIDE 94 mmol/L (97-110); GLUCOSE 66 mg/dl (70-220); MAGNESIUM 2.2 mg/dl (1.7-2.5); PHOSPHORUS 6.3 mg/dl (2.5-4.9); SODIUM 137 mmol/L (135-144)
[2018-09-20] MEDS: DEXTROSE 50% 50 ML SYRINGE IV (06:54)
[2018-09-20 07:32] LABS: AADO2 Arterial 237.9 mmHg (7.0-24.0); Arterial Base Excess 1.5 mmol/L (-3.0-3); Arterial Blood Gas Oxygen Sat 92.7 mmHG (95.0-100.0); Arterial COHb 0.4 % (0.0-3.0); Arterial Fraction of Oxyhgb 92.3 % (93.0-99.0); Arterial HCO3 26.7 mmol/L (22.0-26.0); Arterial MetHb 0 % (0.0-1.5); Arterial pCO2 44.6 mmhg (35-45); MODE HFNC; Site Right Brachial
[2018-09-20] MEDS: LANTHANUM 500 MG CHEW PO ×3 (08:35→20:53)
[2018-09-20] MEDS: DIPYRIDAMOLE/ASPIRIN (SR) CAP PO ×2 (08:35→20:53)
[2018-09-20] MEDS: DOCUSATE SODIUM 100 MG CAP PO ×3 (08:35→20:53)
[2018-09-20] MEDS: MULTIVIT/CA CARB/B CMPLX/FA TAB PO (08:35)
[2018-09-20] MEDS: FISH OIL 1,000 MG CAP PO ×2 (08:35→20:53)
[2018-09-20] MEDS: FOLIC ACID 1 MG TAB PO (08:35)
[2018-09-20] MEDS: QUETIAPINE 25 MG TAB PO ×2 (08:36→20:53)
[2018-09-20] MEDS: CHOLECALCIFEROL 2,000 UNIT CAP PO (08:36)
[2018-09-20] MEDS: INSULIN ASPART [NOVOLOG] 3 ML PEN SC ×4 (08:50→20:51)
[2018-09-20] MEDS: BRIMONIDINE 0.15% 5 ML OPH BOTH EYES ×2 (08:51→20:52)
[2018-09-20] MEDS: TIMOLOL 0.25% 5 ML OPH BOTH EYES ×2 (08:52→20:52)
[2018-09-20] MEDS: INSULIN GLARGINE [LANTus] (100 UNITS/ML) SYG SC (08:52)
[2018-09-20] MEDS: ATORVASTATIN 10 MG TAB PO (20:53)
[2018-09-21] MEDS: ALBUMIN HUMAN 25% 100 ML IV ×2 (01:11)
[2018-09-21] MEDS: ACCU-CHEK XX (02:00)
[2018-09-21] MEDS: SOD CHLORIDE 0.9% 500 ML IV (02:30)
[2018-09-21] MEDS: ACETYLCYSTEINE 20% 4 ML VIAL NEB ×4 (02:37→20:28)
[2018-09-21] MEDS: ALBUTEROL/IPRATROPIUM (NEB) 3 ML AMP HHN ×5 (02:38→20:28)
[2018-09-21] MEDS: INSULIN ASPART [NOVOLOG] 3 ML PEN SC ×4 (07:35→20:54)
[2018-09-21] MEDS: LANTHANUM 500 MG CHEW PO ×3 (09:00→20:49)
[2018-09-21] MEDS: DIPYRIDAMOLE/ASPIRIN (SR) CAP PO ×2 (09:00→20:53)
[2018-09-21] MEDS: LOSARTAN 25 MG TAB PO (09:00)
[2018-09-21] MEDS: FISH OIL 1,000 MG CAP PO ×2 (09:00→20:48)
[2018-09-21 09:58] LABS: ADD MAN DIFF? NO
[2018-09-21] MEDS: TIMOLOL 0.25% 5 ML OPH BOTH EYES ×2 (09:59→20:53)
[2018-09-21] MEDS: BRIMONIDINE 0.15% 5 ML OPH BOTH EYES ×2 (09:59→20:49)
[2018-09-21 10:01] LABS: BASOPHILS % 0.4 % (0.0-2.0); EOSINOPHILS # 0.2 10^3/ul (0.0-0.5); EOSINOPHILS % 3.3 % (0.0-7.0); HEMATOCRIT 33.1 % (42.0-52.0); HEMOGLOBIN 10.5 g/dl (14.0-18.0); LYMPHOCYTES % 14.1 % (15.0-51.0); MEAN CORPUSCULAR HEMOGLOBIN 32.5 pg (29.0-33.0); MEAN CORPUSCULAR HGB CONC 31.7 g/dl (32.0-37.0); MEAN CORPUSCULAR VOLUME 102.5 fl (82.0-101.0); MEAN PLATELET VOLUME 9.5 fl (7.4-10.4); MONOCYTE # 0.6 10^3/ul (0.3-0.9); MONOCYTES % 9.2 % (0.0-11.0); NEUTROPHIL # 4.9 10^3/ul (1.6-7.5); NEUTROPHILS % 72.6 % (39.0-77.0); PLATELET COUNT 175 10^3/UL (140-415); RED BLOOD COUNT 3.23 10^6/ul (4.70-6.10); RED CELL DISTRIBUTION WIDTH 15.6 % (11.5-14.5)
[2018-09-21 10:01] LABS: WHITE BLOOD COUNT 6.7 10^3/ul (4.8-10.8)
[2018-09-21] MEDS: QUETIAPINE 25 MG TAB PO ×2 (10:13→20:53)
[2018-09-21] MEDS: MULTIVIT/CA CARB/B CMPLX/FA TAB PO (10:13)
[2018-09-21] MEDS: CHOLECALCIFEROL 2,000 UNIT CAP PO (10:16)
[2018-09-21] MEDS: FOLIC ACID 1 MG TAB PO (10:21)
[2018-09-21] MEDS: DOCUSATE SODIUM 100 MG CAP PO ×3 (10:21→20:48)
[2018-09-21 10:24] LABS: ALANINE AMINOTRANSFERASE 23 IU/L (13-69); ALBUMIN 3.9 g/dl (3.3-4.9); ALBUMIN/GLOBULIN RATIO 1.21; ALKALINE PHOSPHATASE 74 IU/L (42-121); ANION GAP 14 (5-13); ASPARTATE AMINO TRANSFERASE 23 IU/L (15-46); BILIRUBIN,INDIRECT 0.1 mg/dl (0-1.1); BILIRUBIN,TOTAL 0.1 mg/dl (0.2-1.3); BLOOD UREA NITROGEN 43 mg/dl (7-20); CARBON DIOXIDE 27 mmol/L (21-31); CHLORIDE 95 mmol/L (97-110); GLUCOSE 104 mg/dl (70-220); MAGNESIUM 2.1 mg/dl (1.7-2.5); PHOSPHORUS 5.8 mg/dl (2.5-4.9); POTASSIUM 3.8 mmol/L (3.5-5.1); SODIUM 136 mmol/L (135-144); TOTAL PROTEIN 7.1 g/dl (6.1-8.1)
[2018-09-21] MEDS: INSULIN GLARGINE [LANTus] (100 UNITS/ML) SYG SC (13:05)
[2018-09-21] MEDS: ATORVASTATIN 10 MG TAB PO (20:48)
[2018-09-22] MEDS: ALBUTEROL/IPRATROPIUM (NEB) 3 ML AMP HHN ×4 (01:04→19:50)
[2018-09-22] MEDS: ACETYLCYSTEINE 20% 4 ML VIAL NEB ×5 (01:04→19:50)
[2018-09-22] MEDS: ACCU-CHEK XX (02:00)
[2018-09-22 05:16] LABS: ADD MAN DIFF? NO
[2018-09-22 05:19] LABS: BASOPHILS % 0.4 % (0.0-2.0); EOSINOPHILS # 0.2 10^3/ul (0.0-0.5); HEMATOCRIT 35.9 % (42.0-52.0); HEMOGLOBIN 11.8 g/dl (14.0-18.0); MEAN CORPUSCULAR HEMOGLOBIN 33.1 pg (29.0-33.0); MEAN CORPUSCULAR HGB CONC 32.9 g/dl (32.0-37.0); MEAN CORPUSCULAR VOLUME 100.8 fl (82.0-101.0); MEAN PLATELET VOLUME 10.3 fl (7.4-10.4); MONOCYTE # 0.6 10^3/ul (0.3-0.9); NEUTROPHIL # 6.2 10^3/ul (1.6-7.5); NEUTROPHILS % 77.2 % (39.0-77.0); PLATELET COUNT 227 10^3/UL (140-415); RED BLOOD COUNT 3.56 10^6/ul (4.70-6.10); RED CELL DISTRIBUTION WIDTH 14.9 % (11.5-14.5)
[2018-09-22 05:43] LABS: ANION GAP 18 (5-13); BLOOD UREA NITROGEN 65 mg/dl (7-20); CALCIUM 9.1 mg/dl (8.4-10.2); CARBON DIOXIDE 24 mmol/L (21-31); CHLORIDE 92 mmol/L (97-110); CREATININE 7.29 mg/dl (0.61-1.24); GLUCOSE 133 mg/dl (70-220); MAGNESIUM 2.2 mg/dl (1.7-2.5); PHOSPHORUS 5.5 mg/dl (2.5-4.9); POTASSIUM 4.4 mmol/L (3.5-5.1); SODIUM 134 mmol/L (135-144)
[2018-09-22] MEDS: INSULIN ASPART [NOVOLOG] 3 ML PEN SC ×4 (07:35→21:00)
[2018-09-22] MEDS: FISH OIL 1,000 MG CAP PO ×2 (09:00→21:25)
[2018-09-22] MEDS: DOCUSATE SODIUM 100 MG CAP PO ×3 (09:00→21:29)
[2018-09-22] MEDS: FOLIC ACID 1 MG TAB PO (09:00)
[2018-09-22] MEDS: MULTIVIT/CA CARB/B CMPLX/FA TAB PO (09:00)
[2018-09-22] MEDS: QUETIAPINE 25 MG TAB PO ×2 (09:00→21:23)
[2018-09-22] MEDS: DIPYRIDAMOLE/ASPIRIN (SR) CAP PO ×2 (09:00→21:20)
[2018-09-22] MEDS: CHOLECALCIFEROL 2,000 UNIT CAP PO (09:00)
[2018-09-22] MEDS: LANTHANUM 500 MG CHEW PO ×3 (09:00→21:09)
[2018-09-22] MEDS: BRIMONIDINE 0.15% 5 ML OPH BOTH EYES ×2 (09:50→21:05)
[2018-09-22] MEDS: TIMOLOL 0.25% 5 ML OPH BOTH EYES ×2 (09:50→21:05)
[2018-09-22] MEDS: INSULIN GLARGINE [LANTus] (100 UNITS/ML) SYG SC (09:52)
[2018-09-22] MEDS: HEPARIN 5,000 UNIT/1 ML VIAL SC ×2 (15:26→21:46)
[2018-09-22] MEDS: HALOPERIDOL 5 MG INJ IV (16:59)
[2018-09-22] MEDS: ATORVASTATIN 10 MG TAB PO (21:23)
[2018-09-23] MEDS: ALBUTEROL/IPRATROPIUM (NEB) 3 ML AMP HHN ×4 (02:16→19:49)
[2018-09-23] MEDS: ACETYLCYSTEINE 20% 4 ML VIAL NEB ×4 (02:16→19:48)
[2018-09-23] MEDS: LIDOCAINE 1% (MPF) 5 ML VIAL SC ×2 (02:41)
[2018-09-23] MEDS: ACCU-CHEK XX (02:42)
[2018-09-23] MEDS: HEPARIN 5,000 UNIT/1 ML VIAL SC ×3 (06:13→22:08)
[2018-09-23] MEDS: INSULIN ASPART [NOVOLOG] 3 ML PEN SC ×4 (07:55→21:00)
[2018-09-23 08:17] LABS: ADD MAN DIFF? NO
[2018-09-23 08:23] LABS: WHITE BLOOD COUNT 5.9 10^3/ul (4.8-10.8)
[2018-09-23 08:23] LABS: BASOPHILS % 0.5 % (0.0-2.0); EOSINOPHILS # 0.2 10^3/ul (0.0-0.5); EOSINOPHILS % 2.5 % (0.0-7.0); HEMATOCRIT 38.7 % (42.0-52.0); HEMOGLOBIN 12.3 g/dl (14.0-18.0); MEAN CORPUSCULAR HEMOGLOBIN 32.2 pg (29.0-33.0); MEAN CORPUSCULAR HGB CONC 31.8 g/dl (32.0-37.0); MEAN CORPUSCULAR VOLUME 101.3 fl (82.0-101.0); MEAN PLATELET VOLUME 10.2 fl (7.4-10.4); MONOCYTE # 0.7 10^3/ul (0.3-0.9); MONOCYTES % 12.3 % (0.0-11.0); NEUTROPHIL # 4.1 10^3/ul (1.6-7.5); NEUTROPHILS % 68.4 % (39.0-77.0); PLATELET COUNT 238 10^3/UL (140-415); RED BLOOD COUNT 3.82 10^6/ul (4.70-6.10); RED CELL DISTRIBUTION WIDTH 15.6 % (11.5-14.5)
[2018-09-23 08:51] LABS: ANION GAP 16 (5-13); BLOOD UREA NITROGEN 40 mg/dl (7-20); CALCIUM 9.3 mg/dl (8.4-10.2); CARBON DIOXIDE 27 mmol/L (21-31); CHLORIDE 96 mmol/L (97-110); CREATININE 5.36 mg/dl (0.61-1.24); GLUCOSE 87 mg/dl (70-220); POTASSIUM 4.2 mmol/L (3.5-5.1); SODIUM 139 mmol/L (135-144)
[2018-09-23] MEDS: BRIMONIDINE 0.15% 5 ML OPH BOTH EYES ×2 (09:00→21:43)
[2018-09-23] MEDS: DOCUSATE SODIUM 100 MG CAP PO ×3 (09:00→21:44)
[2018-09-23] MEDS: CHOLECALCIFEROL 2,000 UNIT CAP PO (09:00)
[2018-09-23] MEDS: TIMOLOL 0.25% 5 ML OPH BOTH EYES ×2 (09:00→21:43)
[2018-09-23] MEDS: DIPYRIDAMOLE/ASPIRIN (SR) CAP PO ×2 (09:00→21:44)
[2018-09-23] MEDS: FOLIC ACID 1 MG TAB PO (09:00)
[2018-09-23] MEDS: MULTIVIT/CA CARB/B CMPLX/FA TAB PO (09:00)
[2018-09-23] MEDS: FISH OIL 1,000 MG CAP PO ×2 (09:00→21:44)
[2018-09-23] MEDS: QUETIAPINE 25 MG TAB PO ×2 (09:00→21:00)
[2018-09-23] MEDS: LANTHANUM 500 MG CHEW PO ×3 (09:00→21:44)
[2018-09-23] MEDS: INSULIN GLARGINE [LANTus] (100 UNITS/ML) SYG SC (13:20)
[2018-09-23] MEDS: ATORVASTATIN 10 MG TAB PO (21:44)
[2018-09-24] MEDS: INSULIN ASPART [NOVOLOG] 3 ML PEN SC ×3 (01:00→08:24)
[2018-09-24] MEDS: ACCU-CHEK XX (01:25)
[2018-09-24] MEDS: ALBUTEROL/IPRATROPIUM (NEB) 3 ML AMP HHN ×5 (01:29→21:38)
[2018-09-24] MEDS: ACETYLCYSTEINE 20% 4 ML VIAL NEB ×4 (01:29→19:25)
[2018-09-24] MEDS: DEXTROSE 5%-0.45% NACL 1,000 ML IV (05:45)
[2018-09-24] MEDS: HEPARIN 5,000 UNIT/1 ML VIAL SC ×3 (05:52→21:10)
[2018-09-24] MEDS: BALSAM PERU/CASTOR OIL 60 GM TUBE TOP (09:58)
[2018-09-24] MEDS: LANTHANUM 500 MG CHEW PO ×3 (09:58→20:44)
[2018-09-24] MEDS: FOLIC ACID 1 MG TAB PO (09:59)
[2018-09-24] MEDS: FISH OIL 1,000 MG CAP PO ×2 (09:59→20:44)
[2018-09-24] MEDS: DOCUSATE SODIUM 100 MG CAP PO ×3 (09:59→20:44)
[2018-09-24] MEDS: CHOLECALCIFEROL 2,000 UNIT CAP PO (09:59)
[2018-09-24] MEDS: QUETIAPINE 25 MG TAB PO ×2 (09:59→20:44)
[2018-09-24] MEDS: DIPYRIDAMOLE/ASPIRIN (SR) CAP PO ×2 (09:59→20:44)
[2018-09-24] MEDS: MULTIVIT/CA CARB/B CMPLX/FA TAB PO (09:59)
[2018-09-24] MEDS: Insulin NOVOLOG SS MILD Algorithm (SS with meals and bedtime) SC ×3 (11:20→20:43)
[2018-09-24] MEDS ORDERED: INSULIN ASPART [NOVOLOG] 3 ML PEN SC (11:20)
[2018-09-24 11:24] LABS: ADD MAN DIFF? NO
[2018-09-24 11:31] LABS: BASOPHILS % 0.3 % (0.0-2.0); EOSINOPHILS # 0.1 10^3/ul (0.0-0.5); EOSINOPHILS % 1.7 % (0.0-7.0); HEMATOCRIT 37.8 % (42.0-52.0); HEMOGLOBIN 11.6 g/dl (14.0-18.0); LYMPHOCYTES # 1.3 10^3/ul (0.8-2.9); LYMPHOCYTES % 20.9 % (15.0-51.0); MEAN CORPUSCULAR HEMOGLOBIN 32.2 pg (29.0-33.0); MEAN CORPUSCULAR HGB CONC 30.7 g/dl (32.0-37.0); MEAN PLATELET VOLUME 9.6 fl (7.4-10.4); MONOCYTE # 0.6 10^3/ul (0.3-0.9); NEUTROPHIL # 4.2 10^3/ul (1.6-7.5); NEUTROPHILS % 66.8 % (39.0-77.0); PLATELET COUNT 246 10^3/UL (140-415); RED CELL DISTRIBUTION WIDTH 15.4 % (11.5-14.5)
[2018-09-24 11:31] LABS: WHITE BLOOD COUNT 6.3 10^3/ul (4.8-10.8)
[2018-09-24 12:00] LABS: ANION GAP 16 (5-13); BLOOD UREA NITROGEN 56 mg/dl (7-20); CALCIUM 8.9 mg/dl (8.4-10.2); CARBON DIOXIDE 26 mmol/L (21-31); CHLORIDE 94 mmol/L (97-110); CREATININE 7.12 mg/dl (0.61-1.24); GLUCOSE 116 mg/dl (70-220); MAGNESIUM 2.3 mg/dl (1.7-2.5); PHOSPHORUS 7.1 mg/dl (2.5-4.9); POTASSIUM 4.7 mmol/L (3.5-5.1); SODIUM 136 mmol/L (135-144)
[2018-09-24] MEDS: INSULIN GLARGINE [LANTus] (100 UNITS/ML) SYG SC (14:05)
[2018-09-24] MEDS: TIMOLOL 0.25% 5 ML OPH BOTH EYES ×2 (17:49→20:43)
[2018-09-24] MEDS: BRIMONIDINE 0.15% 5 ML OPH BOTH EYES ×2 (17:50→20:43)
[2018-09-24] MEDS: ACETAMINOPHEN 325 MG TAB PO (18:59)
[2018-09-24] MEDS: ATORVASTATIN 10 MG TAB PO (20:44)
[2018-09-24] MEDS: METOPROLOL 5 MG INJ IV (20:50)
[2018-09-24 22:14] LABS: AADO2 Arterial 481.5 mmHg (7.0-24.0); Allen Test ACCEPTAB; Arterial Base Excess 0.8 mmol/L (-3.0-3); Arterial Blood Gas Oxygen Sat 98.2 mmHG (95.0-100.0); Arterial COHb 0.8 % (0.0-3.0); Arterial Fraction of Oxyhgb 97.3 % (93.0-99.0); Arterial HCO3 32.5 mmol/L (22.0-26.0); Arterial MetHb 0.1 % (0.0-1.5); Arterial pCO2 95.8 mmhg (35-45); MODE MASK - NRB; Site Right Radial
[2018-09-24] MEDS ORDERED: ALBUMIN HUMAN 25% 100 ML (23:38)
[2018-09-24] MEDS ORDERED: ALBUMIN HUMAN 25% 100 ML IV (23:45)
[2018-09-24] MEDS: ALBUMIN HUMAN 25% 100 ML IV (23:51)
[2018-09-25] MEDS ORDERED: NORepinephrine 8MG/250 ML (PMX 250 ML (00:10)
[2018-09-25] MEDS: NORepinephrine 8MG/250 ML (PMX 250 ML IV (00:27)
[2018-09-25 00:50] LABS: AADO2 Arterial 188.5 mmHg (7.0-24.0); Allen Test ACCEPTAB; Arterial Base Excess -4.6 mmol/L (-3.0-3); Arterial Blood Gas Oxygen Sat 95.1 mmHG (95.0-100.0); Arterial COHb 1.3 % (0.0-3.0); Arterial Fraction of Oxyhgb 93.8 % (93.0-99.0); Arterial HCO3 25.2 mmol/L (22.0-26.0); Arterial MetHb 0.1 % (0.0-1.5); Arterial pCO2 71.4 mmhg (35-45); Blood Gas IEPAP 20/5; Blood Gas PS 16; MODE MASK - BIPAP; Site Left Radial
[2018-09-25] MEDS: LEVALBUTEROL (NEB) 1.25 MG/0.5 ML AMP HHN ×4 (01:16→21:14)
[2018-09-25] MEDS: ACETYLCYSTEINE 20% 4 ML VIAL NEB ×4 (01:26→21:14)
[2018-09-25] MEDS: ACCU-CHEK XX (02:00)
[2018-09-25] MEDS ORDERED: LEVALBUTEROL (NEB) 1.25 MG/0.5 ML AMP HHN (02:00)
[2018-09-25] MEDS ORDERED: VANCOMYCIN IV PER PHARMACY XX (03:00)
[2018-09-25] MEDS: PIPER-TAZO 2.25 GM (PMX) 50 ML IVPB ×3 (04:09→21:43)
[2018-09-25] MEDS: VANCOMYCIN HCL 1.5 GM in SOD CHLORIDE 0.9% 250 ML IVPB (04:23)
[2018-09-25 05:19] LABS: ADD MAN DIFF? NO
[2018-09-25 05:26] LABS: WHITE BLOOD COUNT 14.8 10^3/ul (4.8-10.8)
[2018-09-25 05:26] LABS: BASOPHILS % 0.1 % (0.0-2.0); EOSINOPHILS % 0.1 % (0.0-7.0); HEMATOCRIT 37.9 % (42.0-52.0); HEMOGLOBIN 11.7 g/dl (14.0-18.0); LYMPHOCYTES # 0.9 10^3/ul (0.8-2.9); LYMPHOCYTES % 6.3 % (15.0-51.0); MEAN CORPUSCULAR HEMOGLOBIN 32.8 pg (29.0-33.0); MEAN CORPUSCULAR HGB CONC 30.9 g/dl (32.0-37.0); MEAN CORPUSCULAR VOLUME 106.2 fl (82.0-101.0); MEAN PLATELET VOLUME 10.3 fl (7.4-10.4); MONOCYTES % 6.8 % (0.0-11.0); NEUTROPHIL # 12.8 10^3/ul (1.6-7.5); NEUTROPHILS % 86.3 % (39.0-77.0); PLATELET COUNT 242 10^3/UL (140-415); RED BLOOD COUNT 3.57 10^6/ul (4.70-6.10); RED CELL DISTRIBUTION WIDTH 15.4 % (11.5-14.5)
[2018-09-25 05:54] LABS: LACTIC ACID 1.2 mmol/L (0.5-2.0)
[2018-09-25 06:08] LABS: ANION GAP 13 (5-13); BLOOD UREA NITROGEN 33 mg/dl (7-20); CALCIUM 9.4 mg/dl (8.4-10.2); CARBON DIOXIDE 28 mmol/L (21-31); CHLORIDE 97 mmol/L (97-110); GLUCOSE 163 mg/dl (70-220); POTASSIUM 5.4 mmol/L (3.5-5.1); SODIUM 138 mmol/L (135-144)
[2018-09-25] MEDS: HEPARIN 5,000 UNIT/1 ML VIAL SC ×3 (06:40→21:47)
[2018-09-25] MEDS: CHOLECALCIFEROL 2,000 UNIT CAP PO (08:35)
[2018-09-25] MEDS: LANTHANUM 500 MG CHEW PO ×3 (08:35→21:00)
[2018-09-25] MEDS: MULTIVIT/CA CARB/B CMPLX/FA TAB PO (08:35)
[2018-09-25] MEDS: BRIMONIDINE 0.15% 5 ML OPH BOTH EYES ×2 (08:35→21:44)
[2018-09-25] MEDS: TIMOLOL 0.25% 5 ML OPH BOTH EYES ×2 (08:35→21:44)
[2018-09-25] MEDS: DOCUSATE SODIUM 100 MG CAP PO ×3 (08:36→21:00)
[2018-09-25] MEDS: DIPYRIDAMOLE/ASPIRIN (SR) CAP PO ×2 (08:36→21:00)
[2018-09-25] MEDS: FOLIC ACID 1 MG TAB PO (08:36)
[2018-09-25] MEDS: FISH OIL 1,000 MG CAP PO ×2 (08:36→21:00)
[2018-09-25] MEDS: BALSAM PERU/CASTOR OIL 60 GM TUBE TOP (08:36)
[2018-09-25 08:40] LABS: Allen Test ACCEPTAB; Arterial Base Excess 1.1 mmol/L (-3.0-3); Arterial COHb 0.4 % (0.0-3.0); Arterial Fraction of Oxyhgb 97.5 % (93.0-99.0); Arterial HCO3 28.7 mmol/L (22.0-26.0); Arterial MetHb 0.1 % (0.0-1.5); Arterial pCO2 60.4 mmhg (35-45); Blood Gas IEPAP 24/5; MODE MASK - BIPAP; Site Right Brachial
[2018-09-25] MEDS: INSULIN GLARGINE [LANTus] (100 UNITS/ML) SYG SC (08:57)
[2018-09-25] MEDS: Insulin NOVOLOG SS MILD Algorithm (SS with meals and bedtime) SC ×4 (08:58→21:46)
[2018-09-25] MEDS: QUETIAPINE 25 MG TAB PO ×2 (09:00→21:00)
[2018-09-25] MEDS: LIDOCAINE 1% (MPF) 5 ML VIAL SC (12:30)
[2018-09-25] MEDS ORDERED: ALBUTEROL/IPRATROPIUM (NEB) 3 ML AMP (12:44)
[2018-09-25] MEDS: ALBUTEROL/IPRATROPIUM (NEB) 3 ML AMP HHN (13:00)
[2018-09-25] MEDS: METHYLPREDNISOLONE 125 MG INJ IV (13:05)
[2018-09-25] MEDS: BUMETANIDE 1 MG INJ IV (13:15)
[2018-09-25] MEDS: METHYLPREDNISOLONE 40 MG INJ IV ×2 (14:42→21:53)
[2018-09-25 15:04] LABS: AADO2 Arterial 183.4 mmHg (7.0-24.0); Allen Test ACCEPTAB; Arterial Base Excess -0.9 mmol/L (-3.0-3); Arterial Blood Gas Oxygen Sat 97.3 mmHG (95.0-100.0); Arterial COHb 0.8 % (0.0-3.0); Arterial Fraction of Oxyhgb 96.4 % (93.0-99.0); Arterial HCO3 27.9 mmol/L (22.0-26.0); Arterial MetHb 0.1 % (0.0-1.5); Arterial pCO2 67.8 mmhg (35-45); Blood Gas IEPAP 24/5; MODE MASK - BIPAP; Site Right Radial
[2018-09-25] MEDS: ATORVASTATIN 10 MG TAB PO (21:00)
[2018-09-26] MEDS: INSULIN ASPART [NOVOLOG] 3 ML PEN SC ×6 (01:18→21:26)
[2018-09-26] MEDS: ACCU-CHEK XX (01:23)
[2018-09-26] MEDS: LEVALBUTEROL (NEB) 1.25 MG/0.5 ML AMP HHN ×4 (02:50→20:00)
[2018-09-26] MEDS: ACETYLCYSTEINE 20% 4 ML VIAL NEB ×4 (02:50→21:18)
[2018-09-26 05:12] LABS: ADD MAN DIFF? NO
[2018-09-26 05:18] LABS: WHITE BLOOD COUNT 7.4 10^3/ul (4.8-10.8)
[2018-09-26 05:18] LABS: HEMOGLOBIN 11.2 g/dl (14.0-18.0); LYMPHOCYTES # 0.7 10^3/ul (0.8-2.9); LYMPHOCYTES % 9.8 % (15.0-51.0); MEAN CORPUSCULAR HEMOGLOBIN 32.7 pg (29.0-33.0); MEAN CORPUSCULAR HGB CONC 31.1 g/dl (32.0-37.0); MONOCYTE # 0.2 10^3/ul (0.3-0.9); MONOCYTES % 2.6 % (0.0-11.0); NEUTROPHIL # 6.5 10^3/ul (1.6-7.5); NEUTROPHILS % 86.9 % (39.0-77.0); PLATELET COUNT 236 10^3/UL (140-415); RED BLOOD COUNT 3.43 10^6/ul (4.70-6.10); RED CELL DISTRIBUTION WIDTH 15.4 % (11.5-14.5)
[2018-09-26] MEDS: METHYLPREDNISOLONE 40 MG INJ IV ×3 (05:30→21:27)
[2018-09-26] MEDS: HEPARIN 5,000 UNIT/1 ML VIAL SC ×3 (05:33→21:26)
[2018-09-26 06:01] LABS: ANION GAP 11 (5-13); BLOOD UREA NITROGEN 48 mg/dl (7-20); CALCIUM 9.4 mg/dl (8.4-10.2); CARBON DIOXIDE 27 mmol/L (21-31); CHLORIDE 100 mmol/L (97-110); CREATININE 6.64 mg/dl (0.61-1.24); GLUCOSE 136 mg/dl (70-220); MAGNESIUM 2.2 mg/dl (1.7-2.5); PHOSPHORUS 6.4 mg/dl (2.5-4.9); POTASSIUM 5.4 mmol/L (3.5-5.1); SODIUM 138 mmol/L (135-144)
[2018-09-26] MEDS: DOCUSATE SODIUM 100 MG CAP PO ×3 (07:55→21:00)
[2018-09-26] MEDS: FISH OIL 1,000 MG CAP PO ×2 (07:55→21:00)
[2018-09-26] MEDS: MULTIVIT/CA CARB/B CMPLX/FA TAB PO (07:56)
[2018-09-26] MEDS: CHOLECALCIFEROL 2,000 UNIT CAP PO (07:56)
[2018-09-26 08:57] LABS: AADO2 Arterial 159.1 mmHg (7.0-24.0); Arterial Base Excess -1.4 mmol/L (-3.0-3); Arterial Blood Gas Oxygen Sat 98.2 mmHG (95.0-100.0); Arterial COHb 0.3 % (0.0-3.0); Arterial Fraction of Oxyhgb 97.9 % (93.0-99.0); Arterial HCO3 26.5 mmol/L (22.0-26.0); Arterial MetHb 0 % (0.0-1.5); Arterial pCO2 59.7 mmhg (35-45); Blood Gas PS 19; MODE MASK - BIPAP; Site Right Brachial
[2018-09-26] MEDS: LANTHANUM 500 MG CHEW PO ×3 (09:00→21:00)
[2018-09-26] MEDS: QUETIAPINE 25 MG TAB PO ×2 (09:00→21:00)
[2018-09-26] MEDS: DIPYRIDAMOLE/ASPIRIN (SR) CAP PO ×2 (09:00→21:00)
[2018-09-26] MEDS: FOLIC ACID 1 MG TAB PO (09:00)
[2018-09-26] MEDS: PIPER-TAZO 2.25 GM (PMX) 50 ML IVPB ×2 (09:02→21:24)
[2018-09-26] MEDS: BRIMONIDINE 0.15% 5 ML OPH BOTH EYES ×2 (09:03→22:17)
[2018-09-26] MEDS: TIMOLOL 0.25% 5 ML OPH BOTH EYES ×2 (09:03→22:17)
[2018-09-26] MEDS: BALSAM PERU/CASTOR OIL 60 GM TUBE TOP (09:12)
[2018-09-26] MEDS: INSULIN GLARGINE [LANTus] (100 UNITS/ML) SYG SC (09:20)
[2018-09-26] MEDS: HALOPERIDOL 5 MG INJ IV (13:27)
[2018-09-26] MEDS: ATORVASTATIN 10 MG TAB PO (21:00)
[2018-09-27] MEDS: INSULIN ASPART [NOVOLOG] 3 ML PEN SC ×6 (01:36→21:00)
[2018-09-27] MEDS: ACCU-CHEK XX (01:41)
[2018-09-27] MEDS: LEVALBUTEROL (NEB) 1.25 MG/0.5 ML AMP HHN ×4 (03:00→20:55)
[2018-09-27] MEDS: ACETYLCYSTEINE 20% 4 ML VIAL NEB ×4 (03:05→20:55)
[2018-09-27 05:24] LABS: ADD MAN DIFF? NO
[2018-09-27 05:34] LABS: WHITE BLOOD COUNT 11.7 10^3/ul (4.8-10.8)
[2018-09-27 05:34] LABS: BASOPHILS % 0.1 % (0.0-2.0); HEMATOCRIT 41.2 % (42.0-52.0); HEMOGLOBIN 12.9 g/dl (14.0-18.0); LYMPHOCYTES # 0.9 10^3/ul (0.8-2.9); LYMPHOCYTES % 7.3 % (15.0-51.0); MEAN CORPUSCULAR HGB CONC 31.3 g/dl (32.0-37.0); MEAN CORPUSCULAR VOLUME 105.4 fl (82.0-101.0); MEAN PLATELET VOLUME 9.9 fl (7.4-10.4); MONOCYTE # 0.5 10^3/ul (0.3-0.9); MONOCYTES % 3.9 % (0.0-11.0); NEUTROPHIL # 10.3 10^3/ul (1.6-7.5); NEUTROPHILS % 87.8 % (39.0-77.0); PLATELET COUNT 292 10^3/UL (140-415); RED BLOOD COUNT 3.91 10^6/ul (4.70-6.10); RED CELL DISTRIBUTION WIDTH 15.6 % (11.5-14.5)
[2018-09-27] MEDS: HEPARIN 5,000 UNIT/1 ML VIAL SC ×3 (05:37→21:34)
[2018-09-27] MEDS: METHYLPREDNISOLONE 40 MG INJ IV ×3 (05:39→21:31)
[2018-09-27 06:28] LABS: VANCOMYCIN,RANDOM 9.6 ug/ml
[2018-09-27 06:35] LABS: ANION GAP 15 (5-13); BLOOD UREA NITROGEN 45 mg/dl (7-20); CALCIUM 10.1 mg/dl (8.4-10.2); CARBON DIOXIDE 27 mmol/L (21-31); CHLORIDE 99 mmol/L (97-110); CREATININE 5.02 mg/dl (0.61-1.24); GLUCOSE 155 mg/dl (70-220); POTASSIUM 5.3 mmol/L (3.5-5.1); SODIUM 141 mmol/L (135-144)
[2018-09-27] MEDS: FISH OIL 1,000 MG CAP PO ×2 (09:00→21:00)
[2018-09-27] MEDS: DIPYRIDAMOLE/ASPIRIN (SR) CAP PO ×2 (09:00→21:00)
[2018-09-27] MEDS: MULTIVIT/CA CARB/B CMPLX/FA TAB PO (09:00)
[2018-09-27] MEDS: FOLIC ACID 1 MG TAB PO (09:00)
[2018-09-27] MEDS: LANTHANUM 500 MG CHEW PO ×3 (09:00→21:00)
[2018-09-27] MEDS: CHOLECALCIFEROL 2,000 UNIT CAP PO (09:00)
[2018-09-27] MEDS: DOCUSATE SODIUM 100 MG CAP PO ×3 (09:00→21:00)
[2018-09-27] MEDS: QUETIAPINE 25 MG TAB PO ×2 (09:00→21:00)
[2018-09-27] MEDS: BRIMONIDINE 0.15% 5 ML OPH BOTH EYES ×2 (09:11→21:30)
[2018-09-27] MEDS: BALSAM PERU/CASTOR OIL 60 GM TUBE TOP (09:11)
[2018-09-27] MEDS: PIPER-TAZO 2.25 GM (PMX) 50 ML IVPB ×2 (09:11→22:03)
[2018-09-27] MEDS: TIMOLOL 0.25% 5 ML OPH BOTH EYES ×2 (09:11→21:28)
[2018-09-27] MEDS: INSULIN GLARGINE [LANTus] (100 UNITS/ML) SYG SC (09:24)
[2018-09-27] MEDS: VANCOMYCIN 1 GM 250 ML IVPB (13:16)
[2018-09-27] MEDS: ATORVASTATIN 10 MG TAB PO (21:00)
[2018-09-28] MEDS: INSULIN ASPART [NOVOLOG] 3 ML PEN SC ×6 (01:20→21:33)
[2018-09-28] MEDS: ACCU-CHEK XX (02:00)
[2018-09-28] MEDS: ACETYLCYSTEINE 20% 4 ML VIAL NEB ×4 (02:34→20:33)
[2018-09-28] MEDS: LEVALBUTEROL (NEB) 1.25 MG/0.5 ML AMP HHN ×4 (02:34→20:32)
[2018-09-28] MEDS: METHYLPREDNISOLONE 40 MG INJ IV ×3 (05:28→21:50)
[2018-09-28] MEDS: HEPARIN 5,000 UNIT/1 ML VIAL SC ×3 (05:31→21:34)
[2018-09-28 05:39] LABS: ADD MAN DIFF? NO
[2018-09-28 05:47] LABS: HEMATOCRIT 40.2 % (42.0-52.0); HEMOGLOBIN 12.6 g/dl (14.0-18.0); LYMPHOCYTES # 0.8 10^3/ul (0.8-2.9); LYMPHOCYTES % 6.6 % (15.0-51.0); MEAN CORPUSCULAR HEMOGLOBIN 31.9 pg (29.0-33.0); MEAN CORPUSCULAR HGB CONC 31.3 g/dl (32.0-37.0); MEAN CORPUSCULAR VOLUME 101.8 fl (82.0-101.0); MEAN PLATELET VOLUME 9.8 fl (7.4-10.4); MONOCYTE # 0.5 10^3/ul (0.3-0.9); MONOCYTES % 4.2 % (0.0-11.0); NEUTROPHIL # 10.9 10^3/ul (1.6-7.5); NEUTROPHILS % 88.3 % (39.0-77.0); PLATELET COUNT 340 10^3/UL (140-415); RED BLOOD COUNT 3.95 10^6/ul (4.70-6.10); RED CELL DISTRIBUTION WIDTH 15.1 % (11.5-14.5)
[2018-09-28 05:47] LABS: WHITE BLOOD COUNT 12.4 10^3/ul (4.8-10.8)
[2018-09-28 06:20] LABS: MAGNESIUM 2.4 mg/dl (1.7-2.5)
[2018-09-28 06:21] LABS: ANION GAP 20 (5-13); BLOOD UREA NITROGEN 77 mg/dl (7-20); CALCIUM 9.2 mg/dl (8.4-10.2); CARBON DIOXIDE 21 mmol/L (21-31); CHLORIDE 96 mmol/L (97-110); GLUCOSE 159 mg/dl (70-220); POTASSIUM 5.5 mmol/L (3.5-5.1); SODIUM 137 mmol/L (135-144)
[2018-09-28] MEDS: DIPYRIDAMOLE/ASPIRIN (SR) CAP PO ×2 (09:00→21:00)
[2018-09-28] MEDS: CHOLECALCIFEROL 2,000 UNIT CAP PO (09:00)
[2018-09-28] MEDS: FISH OIL 1,000 MG CAP PO ×2 (09:00→21:51)
[2018-09-28] MEDS: FOLIC ACID 1 MG TAB PO (09:00)
[2018-09-28] MEDS: QUETIAPINE 25 MG TAB PO ×2 (09:00→21:51)
[2018-09-28] MEDS: MULTIVIT/CA CARB/B CMPLX/FA TAB PO (09:00)
[2018-09-28] MEDS: DOCUSATE SODIUM 100 MG CAP PO ×3 (09:00→21:00)
[2018-09-28] MEDS: TIMOLOL 0.25% 5 ML OPH BOTH EYES ×2 (09:23→22:33)
[2018-09-28] MEDS: INSULIN GLARGINE [LANTus] (100 UNITS/ML) SYG SC (09:30)
[2018-09-28] MEDS: LANTHANUM 500 MG CHEW PO ×4 (10:43→22:34)
[2018-09-28] MEDS: BALSAM PERU/CASTOR OIL 60 GM TUBE TOP (10:43)
[2018-09-28] MEDS: PIPER-TAZO 2.25 GM (PMX) 50 ML IVPB ×2 (10:44→21:34)
[2018-09-28] MEDS: BARIUM SULFATE 135 ML (E-Z HD) PO (11:27)
[2018-09-28 12:06] LABS: PROCALCITONIN 1.16 ng/mL (<0.10)
[2018-09-28] MEDS ORDERED: BRIMONIDINE 0.15% 5 ML OPH BOTH EYES (21:00)
[2018-09-28] MEDS: ATORVASTATIN 10 MG TAB PO (21:34)
[2018-09-28] MEDS: IPRATROPIUM (NEB) 0.5 MG/2.5 ML AMP HHN (22:59)
[2018-09-29] MEDS: INSULIN ASPART [NOVOLOG] 3 ML PEN SC ×4 (01:00→21:00)
[2018-09-29] MEDS: LEVALBUTEROL (NEB) 1.25 MG/0.5 ML AMP HHN ×4 (01:51→20:07)
[2018-09-29] MEDS: ACETYLCYSTEINE 20% 4 ML VIAL NEB ×4 (01:51→20:07)
[2018-09-29] MEDS: ACCU-CHEK XX (02:00)
[2018-09-29] MEDS: METHYLPREDNISOLONE 40 MG INJ IV ×3 (05:08→21:34)
[2018-09-29] MEDS: HEPARIN 5,000 UNIT/1 ML VIAL SC ×3 (05:23→21:35)
[2018-09-29] MEDS: DOCUSATE SODIUM 100 MG CAP PO ×3 (08:12→21:00)
[2018-09-29] MEDS: FISH OIL 1,000 MG CAP PO ×2 (08:13→21:00)
[2018-09-29] MEDS: CHOLECALCIFEROL 2,000 UNIT CAP PO (08:13)
[2018-09-29] MEDS: MULTIVIT/CA CARB/B CMPLX/FA TAB PO (08:13)
[2018-09-29] MEDS: QUETIAPINE 25 MG TAB PO ×2 (08:13→21:00)
[2018-09-29] MEDS: LANTHANUM 500 MG CHEW PO ×3 (08:13→21:00)
[2018-09-29] MEDS: DIPYRIDAMOLE/ASPIRIN (SR) CAP PO ×2 (08:13→21:00)
[2018-09-29] MEDS: FOLIC ACID 1 MG TAB PO (08:14)
[2018-09-29] MEDS: TIMOLOL 0.25% 5 ML OPH BOTH EYES ×2 (08:14→21:13)
[2018-09-29] MEDS: BRIMONIDINE 0.15% 5 ML OPH BOTH EYES ×2 (08:15→21:13)
[2018-09-29] MEDS: BALSAM PERU/CASTOR OIL 60 GM TUBE TOP (08:15)
[2018-09-29] MEDS: PIPER-TAZO 2.25 GM (PMX) 50 ML IVPB ×2 (08:40→21:16)
[2018-09-29] MEDS: INSULIN GLARGINE [LANTus] (100 UNITS/ML) SYG SC (10:44)
[2018-09-29 11:46] LABS: AADO2 Arterial 21.8 mmHg (7.0-24.0); Allen Test ACCEPTAB; Arterial Base Excess -3.6 mmol/L (-3.0-3); Arterial Blood Gas Oxygen Sat 98.3 mmHG (95.0-100.0); Arterial COHb 0.3 % (0.0-3.0); Arterial Fraction of Oxyhgb 97.9 % (93.0-99.0); Arterial HCO3 25.2 mmol/L (22.0-26.0); Arterial MetHb 0.1 % (0.0-1.5); Arterial pCO2 61.6 mmhg (35-45); Blood Gas IEPAP 15/5; Blood Gas PS 10; Site Right Radial
[2018-09-29 11:47] LABS: MODE NASAL CANNULA
[2018-09-29] MEDS: LORAZEPAM 2 MG INJ IV (15:03)
[2018-09-29] MEDS: NA POLYST SULFON 15 GM/60 ML BTL PO (17:12)
[2018-09-29 18:45] LABS: PHOSPHORUS 9.1 mg/dl (2.5-4.9)
[2018-09-29 18:45] LABS: MAGNESIUM 2.6 mg/dl (1.7-2.5)
[2018-09-29 19:45] LABS: ANION GAP 18 (5-13); BLOOD UREA NITROGEN 74 mg/dl (7-20); CALCIUM 9.4 mg/dl (8.4-10.2); CARBON DIOXIDE 25 mmol/L (21-31); CHLORIDE 98 mmol/L (97-110); CREATININE 5.69 mg/dl (0.61-1.24); GLUCOSE 120 mg/dl (70-220); POTASSIUM 5.2 mmol/L (3.5-5.1); SODIUM 141 mmol/L (135-144)
[2018-09-29] MEDS: ATORVASTATIN 10 MG TAB PO (21:00)
[2018-09-30] MEDS: INSULIN ASPART [NOVOLOG] 3 ML PEN SC ×6 (01:00→21:00)
[2018-09-30] MEDS: ACCU-CHEK XX (01:16)
[2018-09-30] MEDS: LEVALBUTEROL (NEB) 1.25 MG/0.5 ML AMP HHN ×4 (02:07→19:16)
[2018-09-30] MEDS: ACETYLCYSTEINE 20% 4 ML VIAL NEB ×4 (02:07→19:16)
[2018-09-30] MEDS: METHYLPREDNISOLONE 40 MG INJ IV ×3 (05:24→21:42)
[2018-09-30] MEDS: HEPARIN 5,000 UNIT/1 ML VIAL SC ×2 (05:29→21:20)
[2018-09-30 06:17] LABS: ANION GAP 18 (5-13); BLOOD UREA NITROGEN 88 mg/dl (7-20); CALCIUM 9.4 mg/dl (8.4-10.2); CARBON DIOXIDE 25 mmol/L (21-31); CHLORIDE 98 mmol/L (97-110); CREATININE 6.72 mg/dl (0.61-1.24); GLUCOSE 136 mg/dl (70-220); POTASSIUM 5.5 mmol/L (3.5-5.1); SODIUM 141 mmol/L (135-144)
[2018-09-30 06:23] LABS: VANCOMYCIN,RANDOM 15.6 ug/ml
[2018-09-30 06:31] LABS: PHOSPHORUS 11.1 mg/dl (2.5-4.9)
[2018-09-30] MEDS: MULTIVIT/CA CARB/B CMPLX/FA TAB PO (09:00)
[2018-09-30] MEDS: FOLIC ACID 1 MG TAB PO (09:00)
[2018-09-30] MEDS: DIPYRIDAMOLE/ASPIRIN (SR) CAP PO ×2 (09:00→20:48)
[2018-09-30] MEDS: INSULIN GLARGINE [LANTus] (100 UNITS/ML) SYG SC (09:00)
[2018-09-30] MEDS: CHOLECALCIFEROL 2,000 UNIT CAP PO (09:00)
[2018-09-30] MEDS: QUETIAPINE 25 MG TAB PO ×2 (09:00→20:48)
[2018-09-30] MEDS: LANTHANUM 500 MG CHEW PO ×3 (09:00→20:48)
[2018-09-30] MEDS: FISH OIL 1,000 MG CAP PO ×2 (09:00→20:48)
[2018-09-30] MEDS: DOCUSATE SODIUM 100 MG CAP PO ×3 (09:00→20:48)
[2018-09-30] MEDS: PIPER-TAZO 2.25 GM (PMX) 50 ML IVPB ×4 (09:54→23:43)
[2018-09-30] MEDS: TIMOLOL 0.25% 5 ML OPH BOTH EYES ×2 (09:54→21:19)
[2018-09-30] MEDS: BRIMONIDINE 0.15% 5 ML OPH BOTH EYES ×2 (09:54→21:19)
[2018-09-30] MEDS: BALSAM PERU/CASTOR OIL 60 GM TUBE TOP (09:57)
[2018-09-30 11:40] LABS: AADO2 Arterial 75.9 mmHg (7.0-24.0); Allen Test ACCEPTAB; Arterial Base Excess -7.8 mmol/L (-3.0-3); Arterial Blood Gas Oxygen Sat 96.5 mmHG (95.0-100.0); Arterial COHb 0.7 % (0.0-3.0); Arterial Fraction of Oxyhgb 95.6 % (93.0-99.0); Arterial HCO3 21.7 mmol/L (22.0-26.0); Arterial MetHb 0.2 % (0.0-1.5); Arterial pCO2 62.5 mmhg (35-45); Blood Gas IEPAP 15/5; MODE MASK - BIPAP; Site Right Radial
[2018-09-30] MEDS: VANCOMYCIN 1 GM 250 ML IVPB (12:44)
[2018-09-30] MEDS: ATORVASTATIN 10 MG TAB PO (20:48)
[2018-10-01] MEDS: INSULIN ASPART [NOVOLOG] 3 ML PEN SC ×6 (00:53→20:35)
[2018-10-01] MEDS: ACCU-CHEK XX (01:17)
[2018-10-01] MEDS: LEVALBUTEROL (NEB) 1.25 MG/0.5 ML AMP HHN ×4 (01:42→20:59)
[2018-10-01] MEDS: ACETYLCYSTEINE 20% 4 ML VIAL NEB ×4 (01:42→20:59)
[2018-10-01 04:44] LABS: AADO2 Arterial 57.9 mmHg (7.0-24.0); Arterial Base Excess -1.6 mmol/L (-3.0-3); Arterial Blood Gas Oxygen Sat 96.9 mmHG (95.0-100.0); Arterial COHb 0.7 % (0.0-3.0); Arterial Fraction of Oxyhgb 96.1 % (93.0-99.0); Arterial HCO3 25.4 mmol/L (22.0-26.0); Arterial MetHb 0.1 % (0.0-1.5); Arterial pCO2 50.7 mmhg (35-45); Blood Gas IEPAP 18/5; Blood Gas PS 13; MODE MASK - BIPAP; Site Right Brachial
[2018-10-01 05:19] LABS: ADD MAN DIFF? NO
[2018-10-01] MEDS: METHYLPREDNISOLONE 40 MG INJ IV ×3 (05:28→20:28)
[2018-10-01 05:30] LABS: BASOPHILS % 0.1 % (0.0-2.0); HEMATOCRIT 42.6 % (42.0-52.0); HEMOGLOBIN 13.8 g/dl (14.0-18.0); LYMPHOCYTES # 0.7 10^3/ul (0.8-2.9); LYMPHOCYTES % 5.3 % (15.0-51.0); MEAN CORPUSCULAR HEMOGLOBIN 32.4 pg (29.0-33.0); MEAN CORPUSCULAR HGB CONC 32.4 g/dl (32.0-37.0); MEAN PLATELET VOLUME 10.1 fl (7.4-10.4); MONOCYTE # 0.6 10^3/ul (0.3-0.9); MONOCYTES % 4.7 % (0.0-11.0); NEUTROPHIL # 12.1 10^3/ul (1.6-7.5); NEUTROPHILS % 89.3 % (39.0-77.0); PLATELET COUNT 282 10^3/UL (140-415); RED BLOOD COUNT 4.26 10^6/ul (4.70-6.10)
[2018-10-01 05:30] LABS: WHITE BLOOD COUNT 13.5 10^3/ul (4.8-10.8)
[2018-10-01 06:01] LABS: MAGNESIUM 2.4 mg/dl (1.7-2.5)
[2018-10-01 06:01] LABS: PHOSPHORUS 7.3 mg/dl (2.5-4.9)
[2018-10-01 06:24] LABS: ANION GAP 16 (5-13); BLOOD UREA NITROGEN 54 mg/dl (7-20); CALCIUM 9.3 mg/dl (8.4-10.2); CARBON DIOXIDE 24 mmol/L (21-31); CHLORIDE 99 mmol/L (97-110); CREATININE 4.31 mg/dl (0.61-1.24); GLUCOSE 124 mg/dl (70-220); POTASSIUM 4.6 mmol/L (3.5-5.1); SODIUM 139 mmol/L (135-144)
[2018-10-01] MEDS: INSULIN GLARGINE [LANTus] (100 UNITS/ML) SYG SC (09:00)
[2018-10-01] MEDS: CHOLECALCIFEROL 2,000 UNIT CAP PO (09:00)
[2018-10-01] MEDS: MULTIVIT/CA CARB/B CMPLX/FA TAB PO (09:00)
[2018-10-01] MEDS: DIPYRIDAMOLE/ASPIRIN (SR) CAP PO ×2 (09:00→20:28)
[2018-10-01] MEDS: FOLIC ACID 1 MG TAB PO (09:00)
[2018-10-01] MEDS: LANTHANUM 500 MG CHEW PO ×3 (09:00→20:28)
[2018-10-01] MEDS: DOCUSATE SODIUM 100 MG CAP PO ×3 (09:00→20:28)
[2018-10-01] MEDS: FISH OIL 1,000 MG CAP PO ×2 (09:00→20:27)
[2018-10-01] MEDS: QUETIAPINE 25 MG TAB PO ×2 (09:00→20:27)
[2018-10-01] MEDS: BRIMONIDINE 0.15% 5 ML OPH BOTH EYES ×2 (09:11→20:29)
[2018-10-01] MEDS: TIMOLOL 0.25% 5 ML OPH BOTH EYES ×2 (09:11→20:29)
[2018-10-01] MEDS: PIPER-TAZO 2.25 GM (PMX) 50 ML IVPB ×2 (09:12→20:29)
[2018-10-01] MEDS: HEPARIN 5,000 UNIT/1 ML VIAL SC ×2 (09:20→20:30)
[2018-10-01] MEDS: BALSAM PERU/CASTOR OIL 60 GM TUBE TOP (09:27)
[2018-10-01 11:36] LABS: TROPONIN-I 0.289 ng/ml (0.000-0.120)
[2018-10-01 16:11] LABS: TROPONIN-I 0.344 ng/ml (0.000-0.120)
[2018-10-01] MEDS: DEXTROSE 5%-0.45% NACL 1,000 ML IV (18:58)
[2018-10-01] MEDS: ATORVASTATIN 10 MG TAB PO (20:28)
[2018-10-01 20:45] LABS: TROPONIN-I 0.343 ng/ml (0.000-0.120)
[2018-10-02] MEDS: ACCU-CHEK XX (01:33)
[2018-10-02] MEDS: INSULIN ASPART [NOVOLOG] 3 ML PEN SC ×4 (01:54→13:18)
[2018-10-02 02:17] LABS: ADD MAN DIFF? NO
[2018-10-02 02:21] LABS: WHITE BLOOD COUNT 12.7 10^3/ul (4.8-10.8)
[2018-10-02 02:21] LABS: ABNORMAL IP MESSAGE 1; BASOPHILS % 0.2 % (0.0-2.0); HEMATOCRIT 39.5 % (42.0-52.0); HEMOGLOBIN 12.7 g/dl (14.0-18.0); LYMPHOCYTES # 0.5 10^3/ul (0.8-2.9); MEAN CORPUSCULAR HEMOGLOBIN 32.6 pg (29.0-33.0); MEAN CORPUSCULAR HGB CONC 32.2 g/dl (32.0-37.0); MEAN CORPUSCULAR VOLUME 101.3 fl (82.0-101.0); MEAN PLATELET VOLUME 9.9 fl (7.4-10.4); MONOCYTE # 0.4 10^3/ul (0.3-0.9); MONOCYTES % 3.3 % (0.0-11.0); NEUTROPHIL # 11.7 10^3/ul (1.6-7.5); PLATELET COUNT 256 10^3/UL (140-415); POSITIVE DIFF @See below; RED CELL DISTRIBUTION WIDTH 15.1 % (11.5-14.5)
[2018-10-02] MEDS: ACETYLCYSTEINE 20% 4 ML VIAL NEB ×2 (02:40→07:39)
[2018-10-02] MEDS: LEVALBUTEROL (NEB) 1.25 MG/0.5 ML AMP HHN ×2 (02:40→07:39)
[2018-10-02 02:47] LABS: PHOSPHORUS 8.7 mg/dl (2.5-4.9)
[2018-10-02 02:47] LABS: MAGNESIUM 2.5 mg/dl (1.7-2.5)
[2018-10-02 02:48] LABS: ANION GAP 17 (5-13); BLOOD UREA NITROGEN 92 mg/dl (7-20); CARBON DIOXIDE 24 mmol/L (21-31); CHLORIDE 98 mmol/L (97-110); CREATININE 5.89 mg/dl (0.61-1.24); GLUCOSE 320 mg/dl (70-220); POTASSIUM 4.9 mmol/L (3.5-5.1); SODIUM 139 mmol/L (135-144)
[2018-10-02 02:55] LABS: LYMPHOCYTES % 3.9 % (15.0-51.0)
[2018-10-02 03:42] LABS: TROPONIN-I 0.348 ng/ml (0.000-0.120)
[2018-10-02 04:50] LABS: AADO2 Arterial 56.5 mmHg (7.0-24.0); Allen Test ACCEPTAB; Arterial Base Excess -2.8 mmol/L (-3.0-3); Arterial COHb 0.9 % (0.0-3.0); Arterial MetHb 0.1 % (0.0-1.5); Arterial pCO2 50.2 mmhg (35-45); Blood Gas IEPAP 18/5; Blood Gas PS 13; MODE MASK - BIPAP; Site Right Radial
[2018-10-02] MEDS: MULTIVIT/CA CARB/B CMPLX/FA TAB PO (09:00)
[2018-10-02] MEDS: TIMOLOL 0.25% 5 ML OPH BOTH EYES ×2 (10:33→20:53)
[2018-10-02] MEDS: BRIMONIDINE 0.15% 5 ML OPH BOTH EYES (10:33)
[2018-10-02] MEDS: BALSAM PERU/CASTOR OIL 60 GM TUBE TOP (10:44)
[2018-10-02] MEDS: INSULIN GLARGINE [LANTus] (100 UNITS/ML) SYG SC (10:46)
[2018-10-02] MEDS: FOLIC ACID 1 MG TAB PO (10:47)
[2018-10-02] MEDS: DOCUSATE SODIUM 100 MG CAP PO ×2 (10:47→13:00)
[2018-10-02] MEDS: HEPARIN 5,000 UNIT/1 ML VIAL SC (10:47)
[2018-10-02] MEDS: DIPYRIDAMOLE/ASPIRIN (SR) CAP PO (10:47)
[2018-10-02] MEDS: CHOLECALCIFEROL 2,000 UNIT CAP PO (10:48)
[2018-10-02] MEDS: FISH OIL 1,000 MG CAP PO (10:48)
[2018-10-02] MEDS: QUETIAPINE 25 MG TAB PO (10:53)
[2018-10-02] MEDS: LANTHANUM 500 MG CHEW PO ×2 (10:53→13:00)
[2018-10-02] MEDS: METHYLPREDNISOLONE 40 MG INJ IV (11:22)
[2018-10-02] MEDS: LEVOFLOXACIN 500 MG TAB PO (11:30)
[2018-10-02] MEDS ORDERED: NORepinephrine 8MG/250 ML (PMX 250 ML IV (13:00)
[2018-10-02] MEDS ORDERED: ONDANSETRON 4 MG INJ IV (16:30)
[2018-10-02] MEDS ORDERED: ACETAMINOPHEN 650 MG SUPP PR (16:30)
[2018-10-02] MEDS ORDERED: BISACODYL 10 MG SUPP PR (16:30)
[2018-10-02] MEDS ORDERED: LORAZEPAM 2 MG INJ IV (16:30)
[2018-10-03] MEDS ORDERED: ONDANSETRON 4 MG TAB PO ×2 (01:30→02:02)
[2018-10-03] MEDS ORDERED: LORAZEPAM 0.5 MG TAB PO (01:30)
[2018-10-03 05:40] LABS: ANION GAP 19 (5-13); BLOOD UREA NITROGEN 112 mg/dl (7-20); CALCIUM 8.6 mg/dl (8.4-10.2); CARBON DIOXIDE 22 mmol/L (21-31); CHLORIDE 97 mmol/L (97-110); GLUCOSE 261 mg/dl (70-220); POTASSIUM 4.7 mmol/L (3.5-5.1); SODIUM 138 mmol/L (135-144)
[2018-10-03] MEDS: morphine 2 MG INJ IV (06:55)
[2018-10-03] MEDS: ALBUTEROL/IPRATROPIUM (NEB) 3 ML AMP HHN (09:51)
[2018-10-03] MEDS: TIMOLOL 0.25% 5 ML OPH BOTH EYES ×2 (10:17→19:43)
[2018-10-03] MEDS: ATROPINE 1% 5 ML OPH SL (21:28)
[2018-10-04] MEDS ORDERED: LEVOFLOXACIN 250 MG TAB PO (06:00)
[2018-10-04] MEDS: TIMOLOL 0.25% 5 ML OPH BOTH EYES (09:00)
[2018-10-04] MEDS: morphine 2 MG INJ IV (13:33)
== END 2018-10-04 14:18 | disposition expired | DRG 291 ==
LOC: ICU 09-15 19:40 → TEL 09-23 00:27 → ICU 09-24 22:52 → MS1 09-28 00:15 → E/R 10:25 → TEL 09-28 23:15 → 6WM 09-26 22:48 → ICU 09-29 16:56 → E/R 15:10 → 6WM 13:12
PROC: 5A1D70Z Performance of Urinary Filtration, Intermittent, Less than 6 Hours Per Day (ICD-10-PCS; principal; 2018-09-11)
PROC: 0W9B3ZZ Drainage of Left Pleural Cavity, Percutaneous Approach (ICD-10-PCS; 2018-09-15)
PROC: 02HV33Z Insertion of Infusion Device into Superior Vena Cava, Percutaneous Approach (ICD-10-PCS; 2018-09-18)
PROC: 5A09457 Assistance with Respiratory Ventilation, 24-96 Consecutive Hours, Continuous Positive Airway Pressure (ICD-10-PCS; 2018-09-24)
DX: I13.2 Hypertensive heart and chronic kidney disease with heart failure and with stage 5 chronic kidney disease, or end stage renal disease (principal); N18.6 End stage renal disease; J95.811 Postprocedural pneumothorax; I50.33 Acute on chronic diastolic (congestive) heart failure; J96.01 Acute respiratory failure with hypoxia; J96.02 Acute respiratory failure with hypercapnia; G92 Toxic encephalopathy; R57.9 Shock, unspecified; N25.81 Secondary hyperparathyroidism of renal origin; J90 Pleural effusion, not elsewhere classified; J44.1 Chronic obstructive pulmonary disease with (acute) exacerbation; D63.1 Anemia in chronic kidney disease; E11.22 Type 2 diabetes mellitus with diabetic chronic kidney disease; E78.5 Hyperlipidemia, unspecified; E66.3 Overweight; M10.9 Gout, unspecified; H40.9 Unspecified glaucoma; I48.0 Paroxysmal atrial fibrillation; I35.0 Nonrheumatic aortic (valve) stenosis; I73.9 Peripheral vascular disease, unspecified; R00.1 Bradycardia, unspecified; Z66 Do not resuscitate; Z68.29 Body mass index [BMI] 29.0-29.9, adult; Z99.2 Dependence on renal dialysis; Z86.73 Personal history of transient ischemic attack (TIA), and cerebral infarction without residual deficits; Z79.02 Long term (current) use of antithrombotics/antiplatelets; Z79.82 Long term (current) use of aspirin; Z79.4 Long term (current) use of insulin
CPT/HCPCS: 36415; 36600; 71045; 74230; 76942; 80048; 80053; 80202; 82803; 82962; 83036; 83605; 83735; 84100; 84145; 84439; 84484; 84560; 85025; 85610; 85730; 87040-91; 87081; 87340; 90935; 92526; 92610; 92611; 93005; 93306; 94640; 94660; 94664; 94667; 94668; 97110; 97162; 97530; 99285-25